=== PATIENT | male | born 1950 | race Caucasian/White ===

== ENCOUNTER 2017-12-11 08:43 | Day surgery (SDC) | payer MEDICARE, MEDICAID ==
[2017-12-11] MEDS ORDERED: LR 1,000 ML IV ×2 (09:00→12:30)
[2017-12-11] MEDS: dexameTHASONE 4 MG/ML 1ML VIAL (J1100) IV (11:00)
[2017-12-11] MEDS ORDERED: fentaNYL 100 MCG/2 ML INJECTION (J3010) As Ordered (11:00)
[2017-12-11] MEDS ORDERED: PROPOFOL 200 MG/20 ML VIAL As Ordered (11:00)
[2017-12-11] MEDS ORDERED: MIDAZOLAM INJ 2 MG/2 ML VIAL (J2250) As Ordered (11:00)
[2017-12-11] MEDS: LIDOCAINE W/EPINEPHRINE 1% 20ML VIAL As Ordered (11:07)
[2017-12-11] MEDS: BACITRACIN OINT 30GM As Ordered (11:26)
[2017-12-11] MEDS ORDERED: ONDANSETRON 4MG/2ML VIAL (J2405) IV (12:30)
[2017-12-11] MEDS ORDERED: PERCOCET 5MG/325MG TAB PO (12:30)
== END 2017-12-11 12:27 | disposition home or self-care (01) ==
LOC: M SDC 08:43
DX: C44.311 Basal cell carcinoma of skin of nose (principal); I10 Essential (primary) hypertension; J45.909 Unspecified asthma, uncomplicated; I25.10 Atherosclerotic heart disease of native coronary artery without angina pectoris; I25.2 Old myocardial infarction; E78.00 Pure hypercholesterolemia, unspecified; E03.9 Hypothyroidism, unspecified; K21.9 Gastro-esophageal reflux disease without esophagitis; M12.9 Arthropathy, unspecified; L30.9 Dermatitis, unspecified; Z88.0 Allergy status to penicillin; Z91.030 Bee allergy status; Z79.899 Other long term (current) drug therapy; Z85.09 Personal history of malignant neoplasm of other digestive organs; Z85.46 Personal history of malignant neoplasm of prostate; Z92.3 Personal history of irradiation; Z96.643 Presence of artificial hip joint, bilateral
CPT/HCPCS: 11441

== ENCOUNTER → 2018-07-14 | Outpatient (CLI) | payer MEDICARE, MEDICAID ==
[~2018-07-14] MED LIST: /BACIOPOI; /BISO10TA PO; ACET65SU PR; BISO10TA6 PO; CIPR500T3 PO; CIPR500T4; EZET10TA PO; LEVO50TA5 PO; LIDOCAINE 1% MDV 20ML VIAL As Ordered ONE; MULT1TAB11 PO; MULTIVIT; OYST500T; PANT40TA3 PO; PERC5TAB8; PRIL20CA; ROXI1TAB2 PO; SULF1TAB72 PO; TYLE650T25 PO; ZETI10TA PO; ZOCO20TA PO
--- NOTE | 2018-07-15 06:23 | REP ---
CT-GUIDED LEFT ILIAC BONE BIOPSY: The procedure was performed under the direct supervision of Dr. Perera The patient has a history of lytic lesions within the iliac bones left greater than right seen on a previous CT scan from the [facility] performed on 06/13/2018. The risks and benefits of the procedure were explained to the patient and informed consent was obtained. The largest iliac lesion in the left iliac bone was localized using CT guidance. The skin was prepped and draped in a sterile fashion. 1% lidocaine was used as a local anesthetic. Using CT guidance a 17/18 gauge coaxial needle biopsy system was inserted and advanced into the lesion. Five core biopsy samples and 3 ml of red colored fluid was withdrawn with all sample sent to the lab for analysis. The patient tolerated the procedure well and there were no immediate complications. After the appropriate amount of monitored convalescence the patient was discharged from the department. Reviewed by REECE Donnelly 07/14/2018 03:36 P Edited and Electronically Signed by Ajith Perera MD 07/15/2018 08:30 P
== END ==
LOC: M RADPRO 10:22
PROVIDERS: ATTEND Internal Medicine Hematology & Oncology
DX: M89.9 Disorder of bone, unspecified (principal); Z85.46 Personal history of malignant neoplasm of prostate; Z85.89 Personal history of malignant neoplasm of other organs and systems

== ENCOUNTER → 2018-07-24 | Outpatient (CLI) | payer MEDICARE, MEDICAID ==
--- NOTE | 2018-07-24 17:08 | REP ---
CT-GUIDED LEFT ILIAC BONE BIOPSY The procedure was performed under the direct supervision of Dr. levy. The patient has a history of lytic lesions within the iliac bones left greater than right seen on a previous CT scan from [facility] performed on 06/13/2018. The risks and benefits of the procedure were explained to the patient and informed consent was obtained. The left iliac bone was localized using CT guidance. The skin was prepped and draped in a sterile fashion. 1% lidocaine was used as a local anesthetic. Using CT guidance a 16-gauge bone biopsy system was inserted and advanced into the iliac bone. Six core biopsy samples were obtained and sent to lab. The patient tolerated the procedure well and there were no immediate complications. After the appropriate amount of monitored convalescence the patient was discharged from the department. Reviewed by REECE Donnelly 07/24/2018 04:58 P Electronically Signed by Gorge Levy MD 07/24/2018 05:00 P
== END ==
LOC: M RADPRO 08:17
PROVIDERS: ATTEND Internal Medicine Hematology & Oncology
DX: M89.9 Disorder of bone, unspecified (principal)

== ENCOUNTER → 2019-04-23 | Outpatient (CLI) | payer MEDICARE, MEDICAID ==
[~2019-04-23] MED LIST changes: -/BISO10TA PO; +BISO10TA10 PO; -BISO10TA6 PO; -EZET10TA PO; +EZET10TA21 PO; -LIDOCAINE 1% MDV 20ML VIAL As Ordered ONE; +MULTCAP PO; -SULF1TAB72 PO; +SULF400T14 PO; +ZEBE1TAB PO
--- NOTE | 2019-04-23 10:46 | REP ---
Soft-tissue ultrasound right axilla. History: Right axillary mass. History of head and neck and prostate carcinoma and skin carcinoma of the face. Findings: The left axillary sonography demonstrates numerous axillary lymph nodes. One of these is hypertrophied. All maintain central enter hilar architecture. The three largest additional lymph nodes measure as follows: 1.0 x 0.9 x 1.2, 1.3 x 0.9 x 2.0, and 1.3 x 0.9 x 1.4 cm. No hyperechoic hilar fat could be observed in two of the smaller nodes. Impression: Mild left axillary lymphadenopathy. Electronically Signed by Samuel Ruvalcaba MD 04/23/2019 10:38 A
== END ==
LOC: M RAD 09:55
PROVIDERS: ATTEND Surgery
DX: R59.0 Localized enlarged lymph nodes (principal)

== ENCOUNTER 2019-05-25 07:25 | Day surgery (SDC) | payer MEDICARE, MEDICAID ==
[~2019-05-25] VITALS: Ht 165.1 cm; Wt 67.0 kg
[~2019-05-25 07:25] MED LIST changes: -BISO10TA10 PO; +BISO10TA14 PO; +LR 1,000 ML IV SCH
[2019-05-25] MEDS ORDERED: fentaNYL 100 MCG/2 ML INJECTION (J3010) As Ordered ONE (09:04)
[2019-05-25] MEDS ORDERED: ONDANSETRON 4MG/2ML VIAL (J2405) As Ordered ONE (09:05)
[2019-05-25] MEDS ORDERED: propofoL 200 MG/20 ML VIAL As Ordered ONE (09:05)
[2019-05-25] MEDS ORDERED: LIDOCAINE 2% INJ 100 MG/5 ML SDV (FOR ANES.) As Ordered ONE (09:05)
[2019-05-25] MEDS ORDERED: MIDAZOLAM INJ 2 MG/2 ML VIAL (J2250) As Ordered ONE (09:05)
[2019-05-25] MEDS ORDERED: LIDOCAINE W/EPINEPHRINE 1% 20ML VIAL As Ordered ONE (09:29)
[2019-05-25] MEDS ORDERED: ePHEDrine SULFATE 25 MG/5 ML(5MG/ML) SYRINGE As Ordered ONE (09:55)
[2019-05-25] MEDS ORDERED: PERCOCET 5MG/325MG TAB PO PRN (10:30)
[2019-05-25] MEDS ORDERED: LR 1,000 ML IV SCH (10:30)
[2019-05-25] MEDS ORDERED: ONDANSETRON 4MG/2ML VIAL (J2405) IV PRN (10:30)
[2019-05-25] MEDS ORDERED: fentaNYL 100 MCG/2 ML INJECTION (J3010) IV PRN (10:30)
--- NOTE | 2019-05-25 10:46 | RO ---
DATE OF PROCEDURE: 05/25/2019 PREOPERATIVE DIAGNOSIS: Right axillary lymphadenopathy. POSTOPERATIVE DIAGNOSIS: Right axillary lymphadenopathy. PROCEDURE: Right axillary lymph node excisional biopsy. SURGEON: Gorge Hall DO ASSIST: None. ANESTHESIA: Intravenous (IV) sedation with 3 mL of 1% Xylocaine with epinephrine local. COMPLICATION: None. INDICATION FOR PROCEDURE: The patient is a 68-year-old male who presents with right axillary lymphadenopathy. Recommendation was to proceed with biopsy. Risks and benefits of the procedure not limited but including bleeding, infection, damage to surrounding structures, need for further surgery were discussed in detail with the patient. Informed consent was obtained, and procedure was planned. DESCRIPTION OF PROCEDURE: The patient brought back to operating room #3 after sufficient sedation. The right axilla was sterilely prepped and draped with chlorhexidine. Next, time-out was done to confirm proper patient and proper procedure. Following that, overlying the most palpable lymph node, local was injected into the skin and subcutaneous tissue. A 3-cm incision was then made using a 15 blade scalpel. Cautery was then used to dissect the subcutaneous tissues. The largest of the lymph nodes was then grabbed with a pair of Allis clamps, gently retracted back. It was mobilized using some blunt and sharp dissection. The neck of the lymph node was ligated off using a 3-0 Vicryl suture, and the large lymph nodes was removed measuring about 2 cm in size. Once that was removed, the incision was closed with interrupted 3-0 nylon sutures. The area was cleaned and dried. 4 x 4 and tape were applied, thus ending the procedure.
[2019-05-25 13:30] VITALS: BP 140/70
--- NOTE | 2019-05-26 06:48 | ECGEPIP ---
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
== END 2019-05-25 14:00 | disposition home or self-care (01) ==
LOC: M SDC 07:25
PROVIDERS: ATTEND Surgery
DX: C83.04 Small cell B-cell lymphoma, lymph nodes of axilla and upper limb (principal); Z85.21 Personal history of malignant neoplasm of larynx; C13.1 Malignant neoplasm of aryepiglottic fold, hypopharyngeal aspect; Z85.828 Personal history of other malignant neoplasm of skin; E78.00 Pure hypercholesterolemia, unspecified; I25.10 Atherosclerotic heart disease of native coronary artery without angina pectoris; I25.2 Old myocardial infarction; I11.9 Hypertensive heart disease without heart failure; Z92.21 Personal history of antineoplastic chemotherapy; Z92.3 Personal history of irradiation; E03.9 Hypothyroidism, unspecified; M19.90 Unspecified osteoarthritis, unspecified site; K21.9 Gastro-esophageal reflux disease without esophagitis; Z85.46 Personal history of malignant neoplasm of prostate; Z91.030 Bee allergy status; Z88.0 Allergy status to penicillin; Z79.899 Other long term (current) drug therapy; Z87.891 Personal history of nicotine dependence
CPT/HCPCS: 38525; 88305; 93005; J2250; J2405; J3010

== ENCOUNTER → 2019-06-11 | Outpatient (CLI) | payer MEDICARE, MEDICAID ==
[~2019-06-11] MED LIST changes: +GASTROGRAFIN SOLUTION 30ML (Q9963) As Ordered ONE; +ISOVUE-370 76% 100ML VIAL (Q9967) As Ordered ONE; -LR 1,000 ML IV SCH
--- NOTE | 2019-06-11 21:07 | REP ---
Clinical: Lymphoma staging. Comparison: 06/13/2018 Technique: Axial contrast enhanced images from the thoracic inlet to the upper abdomen with coronal and sagittal re-formations using 100 ml Isovue 370 intravenous contrast material. Findings: Prominent bilateral axillary lymph nodes are identified measuring approximately 2.1 cm maximal diameter along with 4.2 cm necrotic right axillary lymph node. Few mildly prominent mediastinal lymph nodes measure 1.4 cm maximal diameter along with right hilar lymph node measuring 1.5 cm. Findings are essentially unchanged from prior examination. The bilateral lung feliz are well-aerated and clear. No consolidation, pulmonary nodule or mass lesion. No pleural effusion or pneumothorax. Tracheobronchial tree is patent. Further evaluation of the mediastinum demonstrates stable dilatation to the ascending thoracic aorta measuring 4.7 cm maximal diameter. Heart is mildly prominent in size. No pericardial effusion. Pulmonary arteries are normal in appearance and diameter. Surrounding musculoskeletal structures without focal abnormality. Impression: 1. Most notable lymph nodes identified in the bilateral axilla measuring to 0.1 cm maximal diameter along with necrotic 4.2 cm right axillary node. 2. Stable ascending aortic dilatation. 3. No acute pleuroparenchymal process. Electronically Signed by Tony Lilly MD 06/11/2019 08:58 P
--- NOTE | 2019-06-11 21:17 | REP ---
Clinical: Lymphoma staging. History of prostate cancer. Technique: Axial contrast enhanced images from the lung bases to the pubic symphysis using oral (per protocol) and 100 ml Isovue 370 intravenous contrast material with coronal and sagittal re-formations. Delayed images of the abdomen obtained. Comparison: 06/13/2018. Findings: Fatty infiltration to the liver noted without obvious focal hepatic lesion. Spleen, pancreas, gallbladder, bilateral adrenal glands and kidneys are normal. The enteric system is without obstruction or acute inflammatory process. Normal terminal ileum and appendix are identified in the right lower quadrant. Evaluation of the pelvis is limited due to beam-hardening artifact from bilateral hip replacements. Penile implant with fluid reservoir in the pelvis noted. No ascites. No free air. No obvious intraperitoneal or retroperitoneal adenopathy. Atherosclerotic changes to the aorta and vasculature noted without aneurysm. Skeletal lytic lesions are identified involving the left efren pelvis are again noted. Impression: 1. Lytic lesions in the left efren pelvis including underlying the acetabular portion of the left hip prosthesis are unchanged and likely related to given history of prostate cancer. 2. No further acute abdominopelvic pathology appreciated. Electronically Signed by Tony Lilly MD 06/11/2019 09:08 P
== END ==
LOC: M RAD 15:36
PROVIDERS: ATTEND Internal Medicine Hematology
DX: C61 Malignant neoplasm of prostate (principal); I77.819 Aortic ectasia, unspecified site; R59.0 Localized enlarged lymph nodes; I70.0 Atherosclerosis of aorta; I25.10 Atherosclerotic heart disease of native coronary artery without angina pectoris
CPT/HCPCS: 71260; 74177; Q9963; Q9967

== ENCOUNTER 2020-08-31 15:31 | Inpatient (IN) | payer MEDICARE, MEDICAID ==
[~2020-08-31] VITALS: Ht 165.1 cm; Wt 61.3 kg
[~2020-08-31 15:31] MED LIST changes: +AMLO1TAB24 PO; -GASTROGRAFIN SOLUTION 30ML (Q9963) As Ordered ONE; -ISOVUE-370 76% 100ML VIAL (Q9967) As Ordered ONE; +PANT40TA29 PO; -PANT40TA3 PO
[2020-08-31 16:38] LABS: HEMATOCRIT 41.1 % (42.0-52.0); HEMOGLOBIN 13.7 g/dl (13.5-17.5); MEAN CORPUSCULAR HEMOGLOBIN 31.6 pg (27.0-33.0); MEAN CORPUSCULAR HGB CONC 33.3 g/dl (32.0-36.5); MEAN CORPUSCULAR VOLUME 94.7 fl (80.0-96.0); PLATELET COUNT, AUTOMATED 156 10^3/uL (150-450); RED BLOOD COUNT 4.34 10^6/uL (4.30-6.10)
[2020-08-31 16:40] LABS: WHITE BLOOD COUNT 29.2 10^3/uL (4.0-10.0)
--- NOTE | 2020-08-31 16:41 | REP ---
INDICATION: choked, SOB COMPARISON: 10/07/2009. TECHNIQUE: PA/Lateral FINDINGS: The patient is rotated to the left. The left hemidiaphragm is mildly elevated with probable mild left base atelectatic change. The heart does not appear to be significantly enlarged. There is mild calcification of the thoracic aorta. Otherwise no gross mediastinal abnormality is seen. There are mild degenerative changes of the spine. IMPRESSION: Somewhat limited exam due to patient rotation. Probable mild atelectatic changes left lung base, with mild elevation of the left hemidiaphragm.. <Electronically signed by Gorge Levy > 08/31/20 [id number]
[2020-08-31 17:00] LABS: BLOOD UREA NITROGEN 6 MG/DL (7-18); CARBON DIOXIDE LEVEL 28 MEQ/L (21-32); CHLORIDE LEVEL 92 MEQ/L (98-107); CREATININE FOR GFR 0.55 MG/DL (0.70-1.30); GLOMERULAR FILTRATION RATE > 60.0 (>49); GLUCOSE, FASTING 85 MG/DL (70-100); POTASSIUM SERUM 3.9 MEQ/L (3.5-5.1); SODIUM LEVEL 129 MEQ/L (136-145)
[2020-08-31 17:12] LABS: ATYPICAL LYMPH 6 % (0-5); BASOPHILS 1 % (0-1); LYMPHOCYTES 77 % (16-44); NEUTROPHILS 16 % (28-66)
[2020-08-31 17:13] LABS: ANISOCYTOSIS 1+; PLATELET ESTIMATE NORMAL (NORMAL); SMUDGE CELLS 3+
[2020-08-31] MEDS ORDERED: ISOVUE-370 76% 100ML VIAL As Ordered ONE (18:30)
[2020-08-31 18:46] LABS: CK-MB VALUE MASS 4.9 NG/ML (<3.6); CPK CREATINE PHOSPHOKINASE 195 U/L (39-308); FREE T4 0.84 NG/DL (0.76-1.46); MAGNESIUM LEVEL 1.9 MG/DL (1.8-2.4); MB/CK RELATIVE INDEX 2.51 (< OR =4); TROPONIN I 0.03 NG/ML (< 0.10)
[2020-08-31] MEDS ORDERED: NS 500 ML IV ONE (18:50)
[2020-08-31 19:31] LABS: INR 0.87; PARTIAL THROMBOPLASTIN TIME 25.8 SECONDS (24.2-38.5)
[2020-08-31] MEDS ORDERED: ENOXAPARIN 40MG/0.4ML SYRINGE (J1650 PER 10MG) SC SCH (21:00)
[2020-08-31] MEDS ORDERED: amLODIPine 5 MG TAB PO SCH (21:00)
--- NOTE | 2020-08-31 21:03 | REPVR ---
PROCEDURE INFORMATION: Exam: CT Head Without Contrast Exam date and time: 08/31/2020 8:24 PM Age: 69 years old Clinical indication: Injury or trauma; Fall; Blunt trauma (contusions or hematomas) TECHNIQUE: Imaging protocol: Computed tomography of the head without contrast. Radiation optimization: All CT scans at this facility use at least one of these dose optimization techniques: automated exposure control; mA and/or kV adjustment per patient size (includes targeted exams where dose is matched to clinical indication); or iterative reconstruction. COMPARISON: CT HEAD W/O CONTRAST - OUTSIDE PRIOR 06/13/2018 12:00 AM FINDINGS: Brain: Normal. No hemorrhage. Unremarkable white matter. No mass effect. Cerebral ventricles: No ventriculomegaly. Bones/joints: Unremarkable. No acute fracture. Paranasal sinuses: Visualized sinuses are unremarkable. No fluid levels. Mastoid air cells: Visualized mastoid air cells are well aerated. Soft tissues: Unremarkable. IMPRESSION: No acute intracranial abnormality. Electronically signed by: Etienne Fenton On 08/31/2020 21:03:25 PM
--- NOTE | 2020-08-31 21:26 | REPVR ---
PROCEDURE INFORMATION: Exam: CTA Chest With Contrast Exam date and time: 08/31/2020 8:24 PM Age: 69 years old Clinical indication: Chest pain; Additional info: Chest pain, syncope TECHNIQUE: Imaging protocol: Computed tomographic angiography of the chest with contrast. 3D rendering (Not supervised by radiologist): MIP and/or 3D reconstructed images were created by the technologist. Radiation optimization: All CT scans at this facility use at least one of these dose optimization techniques: automated exposure control; mA and/or kV adjustment per patient size (includes targeted exams where dose is matched to clinical indication); or iterative reconstruction. Contrast material: ISOVUE 370; Contrast volume: 75 ml; Contrast route: INTRAVENOUS (IV); COMPARISON: CT Chest with contrast 06/11/2019 6:15 PM FINDINGS: Pulmonary arteries: The main pulmonary artery measures 29 mm. No pulmonary embolism is identified. Aorta: The ascending thoracic aorta measures 45 mm. Lungs: Moderate left lung fibro-atelectatic change and question of minimal infiltrates with possible consolidation in the left lower lobe. There is volume loss in the left lung. Pleural spaces: Unremarkable. No pneumothorax. No pleural effusion. Heart: Unremarkable. No cardiomegaly. No pericardial effusion. Lymph nodes: Calcified granuloma in the lateral right lower lobe with calcified right hilar nodes. Borderline precarinal and AP window nodes which are less well-defined since the prior study with slight induration of surrounding mediastinal fat and may be slightly increased since the prior study. Bones/joints: Unremarkable. No acute fracture. Soft tissues: There is abrupt obstruction of central left bronchi with ill-defined soft tissue mass extending around the caudal aspect of the distal left main bronchus and inferior left hilum. IMPRESSION: 1. Mild aneurysmal dilatation of the ascending thoracic aorta measuring 45 mm which is similar to 06/11/2019. 2. New volume loss in the left hemithorax with abrupt obstruction of branches of the distal left main bronchus and question of surrounding peribronchial mass in the left hilum which is viewed with suspicion. There is moderate left lung fibro-atelectatic change and question of minimal infiltrates which is greatest in the left lower lobe with question of some left lower lobe consolidation. 3. Borderline precarinal and AP window nodes which are less well-defined since the prior study due to induration of surrounding mediastinal fat although the nodes may be slightly increased since the prior study. 4. Old granulomatous disease. 5. No pulmonary embolism is identified. Electronically signed by: Giovanny Bonner On 08/31/2020 21:25:26 PM
[2020-08-31] MEDS ORDERED: LevoFLOXacin IV 750 MG in IV 1 EA IV ONE (21:55)
[2020-08-31] MEDS ORDERED: VITMTA PO (22:08)
[2020-08-31] MEDS ORDERED: EZET10TA21 PO (22:08)
[2020-08-31] MEDS ORDERED: BISO10TA14 PO (22:08)
[2020-08-31] MEDS ORDERED: AMLO1TAB24 PO (22:08)
[2020-08-31] MEDS ORDERED: SIMV20TA22 PO (22:08)
[2020-08-31] MEDS ORDERED: LORazepam 2 MG TAB PO PRN (23:15)
[2020-08-31] MEDS ORDERED: ACETAMINOPHEN TAB 650MG DOSE (2X325MG) PO PRN (23:15)
--- NOTE | 2020-08-31 23:17 | ECGEPIP ---
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
[2020-08-31 23:44] LABS: ETHYL ALCOHOL (ETHANOL) 0.034 % (0.000-0.010)
[2020-09-01] VITALS (13 sets, daily range): BP systolic 82–136; BP diastolic 51–80; O2SAT 86–92
--- NOTE | 2020-09-01 00:23 | HPEPDOC ---
[facility] Medical History & Physical Date of Admission Aug 31, 2020 Date of Service: Aug 31, 2020 Primary Care Physician: John Vidal MD Attending Physician: GAGE CAZARES MD History and Physical CHIEF COMPLAINT: Syncope HISTORY OF PRESENT ILLNESS: Patient is a 69-year-old male who presented to the emergency department via EMS after passing out while eating. Patient states he was eating a turkey wrap and all of a sudden passed out. Patient was at his daughter's house when this happened. According to the history received in the emergency department physician, there was apparently an episode of shaking. Patient came to and remembers the ride to the emergency department. Patient denies having any issues with eating such as choking or coughing while he eats. Patient's only complaint at this time is rib pain on the left lower rib cage. Patient has a history of CLL which he follows with oncology for. Patient also has a history of throat and prostate cancer that were treated with both surgery and radiation. Patient states he does not feel dizzy or lightheaded at this time. Patient feels otherwise well. PAST MEDICAL HISTORY: 1. History of laryngeal cancer status post radiation. 2. History of prostate cancer status post radical prostatectomy. 3. CLL/small lymphocytic lymphoma. 4. Hypertension 5. Hyponatremia 6. Hypothyroidism PAST SURGICAL HISTORY: 1. Bilateral hip replacement. 2. Left ankle surgery. 3. Left wrist surgery. 4. Throat biopsy 5. Robotic -assisted radical prostatectomy 6. Penile implant 7. Axillary lymph node removal SOCIAL HISTORY: Patient states that he had quit smoking and drinking alcohol for 17 years until about 2 months ago. Patient denies any illicit substances. Patient says he drinks about 6 beers or more a day and had 2 beers prior to coming into the emergency department. FAMILY HISTORY: Patient denies any diseases that he knows that run in the family ALLERGIES: Please see below. REVIEW OF SYSTEMS: General: Patient reports losing weight over the last 2 months but denies any fevers. HEENT: Patient denies headaches Cardiovascular: Patient denies chest pain Respiratory: Patient reports some pain in the rib cage when breathing and shortness of breath. Patient denies coughing GI: Patient denies abdominal pain, nausea, vomiting, diarrhea : Patient denies increased frequency or pain with urination Extremities: Patient denies swelling or pain in extremities Neurological: Patient denies numbness or tingling in legs Skin: Patient denies any new rashes or lesions. Hematologic: Patient denies any easy bruising. Lymphatic: Patient denies any lumps lumps or bumps in neck, axilla, or groin HOME MEDICATIONS: Please see below. PHYSICAL EXAMINATION: VITAL SIGNS: Temperature 97.2, pulse 73, respiratory rate 20, blood pressure 141/78, pulse oximetry 98% on 4 L via nasal cannula General: Alert and oriented male patient who is laying on his right side when I walked into the room. Patient was thin appearing with a ring on the patient's right hand appearing to be bigger than his finger. Patient did not appear to be in any acute distress. Patient has nasal cannula oxygen in place. HEENT: Normocephalic, atraumatic, moist mucous membranes. Neck: No lymphadenopathy or thyromegaly Cardiac: Regular rate and rhythm, no murmurs, normal S1, normal S2 Pulm: Diminished breath sounds with faint crackles in the left lower lung feliz. Other lung feliz were clear to auscultation Chest wall: Patient had tenderness over the left subcostal area to palpation. Abd: Nondistended, nontender to palpation, normal bowel sounds Ext: No edema bilateral lower extremities LABORATORY DATA: See below. IMAGING: A chest x-ray performed on 08/31/2020 was reported to show somewhat limited exam due to patient rotation. Probable mild atelectatic changes left lung base, with mild elevation of left hemidiaphragm. A CT angiogram of the chest performed on 08/31/2020 was reported to show: 1. Mild aneurysmal dilatation of the ascending thoracic aorta measuring 45 mm which is similar to 06/11/2019. 2. New volume loss in the left hemithorax with abrupt obstruction of branches of the distal left main bronchus and question of surrounding peribronchial mass in the left hilum which is viewed with suspicion. There is moderate left lung fibro-atelectatic change and question of minimal infiltrates which is greatest in the left lower lobe with question of some left lower lobe consolidation. 3. Borderline precarinal and AP window nodes which are less well-defined since the prior study due to induration of surrounding mediastinal fat although the nodes may be slightly increased since the prior study. 4. Old granulomatous disease. 5. No pulmonary embolism is identified. A CT head without contrast performed on 08/31/2020 was reported to show no acute intracranial abnormality. MICROBIOLOGY: Please see below. ASSESSMENT: Patient is a 69-year-old male who syncopized at home while eating lunch and was found to have a new mass in his left lung causing volume loss with possible postobstructive pneumonia. PLAN: 1. Hypoxia. Patient does not wear oxygen at home and is requiring up to 4 L to remain oxygenated. Patient was having difficulty maintaining his oxygen saturations above 90% while in the room and I believe this is secondary to the patient laying on his right side. Patient was found to have a new mass in his left lung that was causing volume loss as well as obstruction. Patient appears to have a postobstructive pneumonia distal to these obstructed bronchi. Patient will most likely benefit from a pulmonology consultation as he may need bronchoscopy and biopsy of this mass. 2. New lung mass. Patient had a CT injury and that showed a new lung mass. Patient may need pulmonology consult in the morning as above. 3. Postoperative pneumonia. Patient will be continued on Levaquin. Patient did receive 1 dose in the emergency department. 4. CLL. Patient follows with oncology for this. Patient's white blood cell count is very high with a lymphocytic predominance on differential which fits this picture. Patient will continue to follow him with his oncologist. 5. History of prostate cancer. Patient will continue to follow with urology outpatient. 6. Hypothyroidism. We will continue patient's home medications. 7. Hypertension. We will closely monitor the patient's blood pressure and give his home antihypertensive if necessary. 8. History of laryngeal cancer. This was treated with radiation. Patient did have a feeding tube at one time but this has been since removed. 9. DVT prophylaxis. Lovenox. 10. CODE STATUS: Patient would like to be a full code however, he would not like to be on mechanical ventilation for long-term. Disposition: Patient will be admitted into the progressive care unit for further monitoring secondary to his hypoxia. Patient will most likely be admitted for greater than 2 midnights. Vital Signs Vital Signs Date Time Temp Pulse Resp B/P (MAP) Pulse Ox O2 Delivery O2 Flow Rate FiO2 08/31/20 18:27 Nasal Cannula 4.0 08/31/20 18:24 73 179/87 (117) 73 167/93 (117) 75 142/85 (104) 08/31/20 18:01 20 98 08/31/20 16:24 97.2 Laboratory Data Labs 24H Laboratory Tests 2 08/31/20 16:20: Neutrophils (%) (Auto) , Nucleated Red Blood Cells % (auto) 0.1H, Neutrophils 16L, Lymphocytes (Manual) 77H, Basophils (Manual) 1, Atypical Lymphocytes 6H, Anisocytosis 1+, Smudge Cells 3+, Platelet Estimate NORMAL, Anion Gap 9, Glomeru lar Filtration Rate > 60.0, Calcium Level 9.0, Magnesium Level 1.9, Total Creatine Kinase 195, Creatine Kinase MB 4.9H, Creatine Kinase MB Relative Index 2.51, Troponin I 0.03, Thyroid Stimulating Hormone (TSH) 4.800H, Free Thyroxine 0.84, Ethyl Alcohol Level 0.034H 08/31/20 18:18: Bedside Glucose (Misc Panel) 116H 08/31/20 19:09: Prothrombin Time 12.0, Prothromb Time International Ratio 0.87, Activated Partial Thromboplast Time 25.8 CBC/BMP Laboratory Tests 08/31/20 16:20 Microbiology Microbiology 08/31/20 Respiratory Virus Panel (PCR) (HILDA) - Final, Complete 08/31/20 Blood Culture, Received Pending 08/31/20 Blood Culture, Received Pending Home Medications Scheduled Amlodipine Besylate (Amlodipine Besylate) 5 Mg Tablet, 5 MG PO QHS Bisoprolol Fumarate (Bisoprolol Fumarate) 10 Mg Tablet, 10 MG PO DAILY Ezetimibe (Ezetimibe) 10 Mg Tablet, 10 MG PO DAILY Levothyroxine Sodium (Levothyroxine Sodium) 50 Mcg Tab, 50 MCG PO DAILY Multivitamins (Thera M Plus Tablet) 1 Each Tablet, 1 TAB PO DAILY Simvastatin (Simvastatin) 20 Mg Tablet, 20 MG PO QHS Allergies Coded Allergies: Penicillins (Verified Allergy, Severe, anaphylaxis, hives, 08/31/20) bee venom protein (honey bee) (Verified Allergy, Severe, respiratory depression, wheezing, 08/31/20) A-FIB/CHADSVASC A-FIB History Current/History of A-Fib/PAF?: No GME ATTESTATION GME ATTESTATION My faculty preceptor for this patient encounter was physically present during the encounter and was fully available. All aspects of the patient interview, examination, medical decision making process, and medical care plan development were reviewed and approved by the faculty preceptor. The faculty preceptor is aware and concurs with the plan as stated in the body of this note and will attest to such by his/her cosignature. BRYANNA STEWARD DO Sep 01, 2020 00:23
[2020-09-01] MEDS: SIMVASTATIN 20 MG TAB PO SCH ×2 (01:38→22:02)
[2020-09-01 05:55] LABS: HEMATOCRIT 46.5 % (42.0-52.0); MEAN CORPUSCULAR HEMOGLOBIN 31.7 pg (27.0-33.0); MEAN CORPUSCULAR HGB CONC 33.8 g/dl (32.0-36.5); MEAN CORPUSCULAR VOLUME 93.8 fl (80.0-96.0); PLATELET COUNT, AUTOMATED 184 10^3/uL (150-450); RED BLOOD COUNT 4.96 10^6/uL (4.30-6.10)
[2020-09-01 06:11] LABS: HEMOGLOBIN 15.7 g/dl (13.5-17.5); WHITE BLOOD COUNT 37.4 10^3/uL (4.0-10.0)
[2020-09-01 06:21] LABS: ALBUMIN 4.1 GM/DL (3.2-5.2); ALT/SGPT 42 U/L (12-78); BILIRUBIN,TOTAL 0.9 MG/DL (0.2-1.0); BLOOD UREA NITROGEN 8 MG/DL (7-18); CALCIUM LEVEL 9.2 MG/DL (8.8-10.2); CARBON DIOXIDE LEVEL 27 MEQ/L (21-32); CHLORIDE LEVEL 91 MEQ/L (98-107); CREATININE FOR GFR 0.54 MG/DL (0.70-1.30); GLOMERULAR FILTRATION RATE > 60.0 (>49); GLUCOSE, FASTING 102 MG/DL (70-100); MAGNESIUM LEVEL 1.8 MG/DL (1.8-2.4); POTASSIUM SERUM 4.5 MEQ/L (3.5-5.1); SODIUM LEVEL 125 MEQ/L (136-145); TOTAL PROTEIN 7.1 GM/DL (6.4-8.2)
[2020-09-01] MEDS: LEVOTHYROXINE 50MCG TABLET (0.05MG) PO SCH (06:22)
[2020-09-01 06:45] LABS: ATYPICAL LYMPH 5 % (0-5); LYMPHOCYTES 79 % (16-44); NEUTROPHILS 16 % (28-66); PLATELET ESTIMATE NORMAL (NORMAL)
[2020-09-01] MEDS ORDERED: MEROPENEM INJ 500 MG in IV 1 EA IV SCH (08:05)
[2020-09-01] MEDS: MEROPENEM INJ 1 GM in IV 1 EA IV SCH ×2 (08:50→16:38)
[2020-09-01] MEDS: SODIUM CHLORIDE 1 GM TAB PO SCH ×3 (08:50→22:02)
[2020-09-01] MEDS: LACTOBACILLUS ACIDOPHILUS CAP (BACID) PO SCH ×3 (08:51→18:36)
[2020-09-01] MEDS: THIAMINE 100 MG TAB PO SCH ×2 (08:51→22:02)
[2020-09-01] MEDS: guaiFENesin ER 600 MG TAB PO SCH ×2 (08:51→22:03)
[2020-09-01] MEDS: MULTIVITAMINS/MINERALS THERAP 1 TAB PO SCH (08:51)
[2020-09-01] MEDS: EZETIMIBE 10 MG TAB (ZETIA) PO SCH (08:51)
[2020-09-01] MEDS: FOLIC ACID 1 MG TAB PO SCH (08:51)
[2020-09-01] MEDS ORDERED: bisoproloL fumarate 10 MG TAB PO SCH (09:00)
[2020-09-01 09:19] LABS: ABG BASE EXCESS 1.5 (-2.0-2.0); ABG HCO3 25.9 MEQ/L (22.0-26.0); ABG O2 SATURATION 91.7 % (95.0-99.0); ABG PARTIAL PRESSURE O2 58.8 mmHg (75.0-100.0); ABG STANDARD HCO3 25.7 MEQ/L (22.0-26.0); ABG TOTAL CO2 27.1 MEQ/L (23.0-31.0); ABG pH (ARTERIAL) 7.429 UNITS (7.350-7.450)
[2020-09-01] MEDS ORDERED: TOLVAPTAN 7.5 MG HALF-TAB PO ONE (11:00)
[2020-09-01 13:07] LABS: BLOOD UREA NITROGEN 11 MG/DL (7-18); CALCIUM LEVEL 9.4 MG/DL (8.8-10.2); CARBON DIOXIDE LEVEL 27 MEQ/L (21-32); CHLORIDE LEVEL 92 MEQ/L (98-107); CREATININE FOR GFR 0.72 MG/DL (0.70-1.30); GLOMERULAR FILTRATION RATE > 60.0 (>49); GLUCOSE, FASTING 122 MG/DL (70-100); POTASSIUM SERUM 4.3 MEQ/L (3.5-5.1); SODIUM LEVEL 129 MEQ/L (136-145)
[2020-09-01] MEDS ORDERED: MIDODRINE 5 MG TAB PO SCH (13:45)
--- NOTE | 2020-09-01 13:57 | IPN ---
PROGRESS NOTE DATE: 09/01/2020 SUBJECTIVE: Patient still complains of shortness of breath, cough, difficult to expectorate. No fever or chills overnight. He complains of generalized weakness. No hemoptysis, nausea, vomiting, epigastric pain, chest pain, pressure, tightness, palpitations, lightheadedness or near syncope. PHYSICAL EXAMINATION: VITAL SIGNS: Temperature 97.9, pulse 82, respiratory rate 22, blood pressure 98/68Venturi mask 15 liters, FIO2 50%. GENERAL: Patient is awake, alert, oriented to himself, able to speak but slow speech and whispering. He has positive use of respiratory accessory muscles. HEENT: Cachectic appearing. No JVD or thyromegaly. Moist mucous membranes. HEART: S1, S2, sinus rhythm. No murmurs, rubs or gallops. LUNGS: Diminished breath sounds on the left with crackles. ABDOMEN: Soft, nontender, non-distended. Positive bowel sounds. EXTREMITIES: No cyanosis, clubbing or pitting edema. LABORATORY DATA: White count 37, hemoglobin 15, hematocrit 46, platelet count 184,000. Sodium 125, potassium 4.5, chloride 91, bicarb 27, BUN 8, creatinine 0.54, glucose 102. IMAGING STUDIES: CT chest revealed moderate left lung fibro-atelectasis, minimal infiltrate with consolidation left lower lobe, volume loss in the left lung, descending thoracic aorta measuring 45 mm. No pneumothorax or pleural effusion. No cardiomegaly. No pericardial effusion. Precarinal AP lymph nodes less well defined since prior study with slight induration of surrounding mediastinal fat and maybe slightly increased from previous, old granulomatous disease, no PE. ASSESSMENT AND PLAN: This is a 69-year-old male admitted on 08/31/2020 with past medical history significant for laryngeal cancer; status post radiation, prostate cancer; status post radical prostatectomy, chronic lymphocytic leukemia, small lymphocytic lymphoma, hypertension, hyponatremia, hypothyroidism, who was admitted due to syncopal episode at home, could not remember what happened while he was at his daughter's house. Patient had some chills on arrival and was found in the ER to have a post obstructive pneumonia on the left. He was treated with I.V. Levaquin due to penicillin allergy. Patient continued to have worsening white count to 35,000, sodium level decreasing from 129,000 to 125,000, and remained hypoxic requiring Venturi Mask with 15 liters flow rate, FIO2 of 50%. Respiratory panel was negative for Coronavirus. CURRENT ISSUES: 1. Acute hypoxic respiratory failure secondary to a new left lung mass along with a post obstructive pneumonia: Patient is currently requiring 50% FIO2, maybe Vapotherm. Will continue with aggressive pulmonary toilet which has physiotherapy, Acapella and incentive spirometry. Repeat arterial blood gas if he continues to decompensate. Keep saturations above 90% at least. Supportive care with I.V. antibiotics, but will change from I.V. Levaquin to I.V. Meropenem at 500 mg every 8 hours. Sputum culture if available. Blood cultures have been sent. Tapper Shank will be consulted due to worsening respiratory distress. 2. Post obstructive pneumonia with atelectasis/left-sided lung mass: Patient is medically unstable to undergo CT guided biopsy and most likely cannot be reached, therefore will defer to pulmonology regarding timing of bronchoscopy once respiratory distress has improved. Most likely malignancy, will consult patient's travelers' aid worker, Dr. Beltre, from the [facility]. 3. Near syncope: Patient may have symptomatic hyponatremia, sodium level currently has worsened at 125 from 129. Echocardiogram has been ordered. Patient is currently on telemetry. Continue on supportive care for now. 4. Hyponatremia: Patient is at risk for aspiration, will obtain a speech consult. Sodium tablets can be added t.i.d. with his meals and recheck BMP every 6 hours until normalized. Avoid more than 10 to 12 mEq change management facilitator a 24 hour period. Samsca one dose 7.5 mg times one. 5. History of CLL, small lymphocytic lymphoma, prostate cancer; status post radical prostatectomy, laryngeal cancer; status post radiation: Defer to medical oncologist for any further changes. 6. Hypertension: Currently with low blood pressure, therefore will discontinue patient's home medications. 7. Hypothyroidism: May continue on Synthroid. 8. Alcohol intoxication on admission: most likely cause of syncope at home. 9. Possible Aspiration from alcohol intoxication with hypoxia: aspiration precautions. swallow eval. 10. Acute metabolic encephalopathy: due pneumonia, aspiration, hypoxia, etoh. addendum: discussed w tank setter helper cash reconciliation specialist, Dr. Mchugh. no changes in mgt needed. Pt is not clinically stable for bronchoscopy. continue supportive care , aerosolized oxygen, pulm toilet. Dr. Mchugh will signout to Dr. Rivera when he goes off service later this evening. CODE STATUS: Full code. MTDD
[2020-09-01] MEDS: MIDODRINE 5 MG TAB PO SCH (16:38)
[2020-09-01 18:32] LABS: BLOOD UREA NITROGEN 11 MG/DL (7-18); CALCIUM LEVEL 8.6 MG/DL (8.8-10.2); CARBON DIOXIDE LEVEL 28 MEQ/L (21-32); CHLORIDE LEVEL 95 MEQ/L (98-107); CREATININE FOR GFR 0.58 MG/DL (0.70-1.30); GLOMERULAR FILTRATION RATE > 60.0 (>49); GLUCOSE, FASTING 93 MG/DL (70-100); POTASSIUM SERUM 4.4 MEQ/L (3.5-5.1); SODIUM LEVEL 131 MEQ/L (136-145)
--- NOTE | 2020-09-01 20:01 | CR.PDOC ---
General Date of Consultation: Sep 01, 2020 Referring Provider: ARIEL COHEN MD Attending Physician: TEGAN BROWN MD Consultation REASON FOR CONSULTATION/CHIEF COMPLAINT: History of prostate cancer/chronic lymphocytic leukemia with new left-sided lung mass and pneumonia area.. HISTORY OF PRESENT ILLNESS: I had the pleasure of seeing Mr. Samuel Linder in consultation for a new mass and pneumonia in the left lung. As you know Mr. Tapia is a 69-year-old white gentleman who was diagnosed to have adenocarcinoma prostate and underwent robotic prostatectomy at [facility] is no evidence of metastatic disease at that time. He was also found to have CLL/SLL diagnosed on 06/05/2019 with a lymph node biopsy of the left axillary area. He never received treatment for CLL/SLL and is being followed with watchful observation. He was seen last time in our office on 03/30/2020. He was admitted now since he suddenly passed out while he was visiting his daughter's home. CT scan done in emergency room revealed left lower lobe pneumonia and there was possibility of a mass and pneumonia was likely postobstructive in nature. Patient is admitted and has been started on antibiotics. Currently he is stable. He has minimal cough with mucoid phlegm. Denies hemoptysis. He denies fever chills or rigors. He denies nausea vomiting abdominal pain or diarrhea. He does not have headache dizziness or blackouts. He has no urinary symptoms. PAST MEDICAL HISTORY: 1. History of laryngeal cancer status post radiation. 2. History of prostate cancer status post radical prostatectomy. 3. CLL/small lymphocytic lymphoma. 4. Hypertension 5. Hyponatremia 6. Hypothyroidism PAST SURGICAL HISTORY: 1. Bilateral hip replacement. 2. Left ankle surgery. 3. Left wrist surgery. 4. Throat biopsy 5. Robotic -assisted radical prostatectomy 6. Penile implant 7. Axillary lymph node removal FAMILY HISTORY: No history of CLL or prostate cancer or lung cancer in family SOCIAL HISTORY: Patient lives alone and recently he is girlfriend left him and he is quite depressed. He quit smoking and drinking for 17 years but restarted smoking about 2 months ago. He has been drinking beer 6 a day and was drinking also prior to brought in to emergency room. REVIEW OF SYSTEMS: CONSTITUTIONAL: Patient has been losing weight but denies fever chills or rigors. HEENT: No headaches or visual changes. CARDIOVASCULAR: Denies chest pain palpitation PND or orthopnea. RESPIRATORY: Shortness of breath cough with mucoid phlegm. GENITOURINARY: History of prostate cancer. Denies bloody urination or blood in the urine. MUSCULOSKELETAL: Denies body pains. GASTROINTESTINAL: No nausea vomiting abdominal pain or diarrhea. SKIN: No rashes. NEUROLOGICAL: No deficit. PSYCHIATRIC: Patient's slightly depressed because he is girlfriend left him.. HEMATOLOGIC/LYMPHATIC: Has history of CLL and lymphadenopathy. ALLERGIC/IMMUNOLOGIC: . PHYSICAL EXAMINATION: VITAL SIGNS: Please see below. GENERAL APPEARANCE: An elderly gentleman in no acute distress lying comfortably in bed.. HEENT: WNL EOMI oral cavity clear without mucositis or thrush. RESPIRATORY: Crackles heard in the left lung, right lung is clear. CARDIOVASCULAR: Normal cardiac sound regular rate and rhythm. ABDOMEN: Soft bowel sounds present. No hepatosplenomegaly. EXTREMITIES: Normal without any pedal edema. NEUROLOGICAL: No gross motor or sensory deficit. PSYCHIATRIC: Slightly depressed. LABORATORY DATA: Please see below. ASSESSMENT/PLAN: 1. Possibility of mass in the left lung found on recent CAT scan with postobstructive pneumonia. He is recovering from pneumonia and is on antibiotics. He needs to continue antibiotics until pneumonia resolves then he will require bronchoscopy since there is post obstructive pneumonia and bronchoscopy may be able to get tissue sample for exact diagnosis. Lung mass is not big enough to go CT-guided needle biopsy.. 2. Prostate carcinoma: PSA level will be ordered. 3. Patient has CLL and has immune compromised state because of CLL. I will order an IgG level and if it is below 500 IVIG will be helpful to improve the immunity and improve the healing of his pneumonia. Once patient recovers from pneumonia and have bronchoscopy and tissue diagnosis is available, patient will be followed up as outpatient for further decision making in treatment. Vital Signs/I&O Vital Signs Date Time Temp Pulse Resp B/P (MAP) Pulse Ox O2 Delivery O2 Flow Rate FiO2 09/01/20 17:26 78 118/78 09/01/20 16:04 98.5 24 94 HVNI-Vapotherm 20.0 100 I&O- Last 24 Hours up to 6 AM 09/01/20 06:00 Intake Total 150 ml Output Total 275 ml Balance -125 ml Laboratory Data Labs 24H Laboratory Tests 2 09/01/20 01:21: Lactic Acid Level 1.0 09/01/20 05:26: Neutrophils (%) (Auto) , Nucleated Red Blood Cells % (auto) 0.0, Neutrophils 16L, Lymphocytes (Manual) 79H, Atypical Lymphocytes 5, Red Blood Cell Morphology NORMAL, Platelet Estimate NORMAL, Anion Gap 7L, Glomerular Filtration Rate > 60.0, Calcium Level 9.2, Magnesium Level 1.8, Total Bilirubin 0.9, Aspartate Amino Transf (AST/SGOT) 39H, Alanine Aminotransferase (ALT/SGPT) 42, Alkaline Phosphatase 51, Total Protein 7.1, Albumin 4.1, Albumin/Globulin Ratio 1.4 09/01/20 09:09: Blood Gas Bicarbonate Standard 25.7, Arterial Blood pH 7.429, Arterial Blood Partial Pressure CO2 40.0, Arterial Blood Partial Pressure O2 58.8L, Arterial Blood Total CO2 27.1, Arterial Blood HCO3 25.9, Arterial Blood Base Excess 1.5, Arterial Blood Oxygen Saturation 91.7L 09/01/20 12:07: Anion Gap 10, Glomerular Filtration Rate > 60.0, Calcium Level 9.4 09/01/20 17:43: Anion Gap 8, Glomerular Filtration Rate > 60.0, Calcium Level 8.6L CBC/BMP Laboratory Tests 09/01/20 05:26 09/01/20 12:07 09/01/20 17:43 Microbiology Microbiology 08/31/20 Respiratory Virus Panel (PCR) ([facility]) - Final, Complete 08/31/20 Blood Culture, Received Pending 08/31/20 Blood Culture, Received Pending Allergies Coded Allergies: Penicillins (Verified Allergy, Severe, anaphylaxis, hives, 08/31/20) bee venom protein (honey bee) (Verified Allergy, Severe, respiratory depression, wheezing, 08/31/20) Home Medications Scheduled Amlodipine Besylate (Amlodipine Besylate) 5 Mg Tablet, 5 MG PO QHS, (Reported) Bisoprolol Fumarate (Bisoprolol Fumarate) 10 Mg Tablet, 10 MG PO DAILY, (Reported) Ezetimibe (Ezetimibe) 10 Mg Tablet, 10 MG PO DAILY, (Reported) Levothyroxine Sodium (Levothyroxine Sodium) 50 Mcg Tab, 50 MCG PO DAILY, (Reported) Multivitamins (Thera M Plus Tablet) 1 Each Tablet, 1 TAB PO DAILY, (Reported) Simvastatin (Simvastatin) 20 Mg Tablet, 20 MG PO QHS, (Reported) TEGAN BRWON MD Sep 01, 2020 20:01
[2020-09-01 20:20] LABS: IMMUNOGLOBULIN G 358 MG/DL (681-1648)
[2020-09-01] MEDS ORDERED: LevoFLOXacin IV 750 MG in IV 1 EA IV SCH (23:00)
[2020-09-02] VITALS (16 sets, daily range): BP systolic 129–169; BP diastolic 71–98; O2SAT 94–97
[2020-09-02] MEDS: MEROPENEM INJ 1 GM in IV 1 EA IV SCH ×3 (01:57→16:19)
[2020-09-02] MEDS: LEVOTHYROXINE 50MCG TABLET (0.05MG) PO SCH (06:30)
[2020-09-02 06:48] LABS: HEMATOCRIT 44.4 % (42.0-52.0); HEMOGLOBIN 15.1 g/dl (13.5-17.5); MEAN CORPUSCULAR HEMOGLOBIN 32.3 pg (27.0-33.0); MEAN CORPUSCULAR VOLUME 94.9 fl (80.0-96.0); PLATELET COUNT, AUTOMATED 149 10^3/uL (150-450); RED BLOOD COUNT 4.68 10^6/uL (4.30-6.10)
[2020-09-02 06:51] LABS: WHITE BLOOD COUNT 19.2 10^3/uL (4.0-10.0)
[2020-09-02 06:58] LABS: BLOOD UREA NITROGEN 10 MG/DL (7-18); CALCIUM LEVEL 8.9 MG/DL (8.8-10.2); CARBON DIOXIDE LEVEL 29 MEQ/L (21-32); CHLORIDE LEVEL 98 MEQ/L (98-107); CREATININE FOR GFR 0.58 MG/DL (0.70-1.30); GLOMERULAR FILTRATION RATE > 60.0 (>49); GLUCOSE, FASTING 105 MG/DL (70-100); MAGNESIUM LEVEL 2.2 MG/DL (1.8-2.4); POTASSIUM SERUM 4.4 MEQ/L (3.5-5.1); SODIUM LEVEL 132 MEQ/L (136-145)
[2020-09-02 07:03] LABS: ANISOCYTOSIS 1+; ATYPICAL LYMPH 2 % (0-5); LYMPHOCYTES 73 % (16-44); MONOCYTES 1 % (0-5); NEUTROPHILS 22 % (28-66); PLATELET ESTIMATE NORMAL (NORMAL); SMUDGE CELLS 3+
[2020-09-02] MEDS: MULTIVITAMINS/MINERALS THERAP 1 TAB PO SCH (07:50)
[2020-09-02] MEDS: THIAMINE 100 MG TAB PO SCH ×2 (07:50→21:17)
[2020-09-02] MEDS: FOLIC ACID 1 MG TAB PO SCH (07:50)
[2020-09-02] MEDS: LACTOBACILLUS ACIDOPHILUS CAP (BACID) PO SCH ×3 (07:50→16:55)
[2020-09-02] MEDS: EZETIMIBE 10 MG TAB (ZETIA) PO SCH (07:50)
[2020-09-02] MEDS: SODIUM CHLORIDE 1 GM TAB PO SCH ×3 (07:50→21:17)
[2020-09-02] MEDS: MIDODRINE 5 MG TAB PO SCH ×3 (07:50→15:26)
[2020-09-02] MEDS: guaiFENesin ER 600 MG TAB PO SCH ×2 (07:50→21:17)
[2020-09-02 08:27] LABS: CK-MB VALUE MASS < 1.0 NG/ML (<3.6); CPK CREATINE PHOSPHOKINASE 71 U/L (39-308); MB/CK RELATIVE INDEX 1.41 (< OR =4); NT-PRO BNP 357 PG/ML (<125); TROPONIN I < 0.02 NG/ML (< 0.10)
--- NOTE | 2020-09-02 08:30 | IPNPDOC ---
Date Seen The patient was seen on 09/01/20. Progress Note ADDENDUM TO PROGRESS NOTE: Acute hypoxic respiratory failure requiring 50% Fio2 ?Left hilar lung mass postobstructive pneumonia ETOH intoxication-induced syncope aspiration acute metabolic/alcohol induced encephalopathy. Plan: discussed the case with mandrel cleaner police communications dispatcher Dr. Mchugh, who recommended aerosolized oxygen, pulmonary toilet, abx,aspiration precautions, treatment of hyponatremia. VS, I&O, 24H, Fishbone Vital Signs/I&O Vital Signs Date Time Temp Pulse Resp B/P (MAP) Pulse Ox O2 Delivery O2 Flow Rate FiO2 09/01/20 07:44 87 Nasal Cannula 50 09/01/20 07:30 97.9 82 22 98/60 (73) 15.0 I&O- Last 24 Hours up to 6 AM 09/01/20 05:59 Intake Total 150 ml Output Total 275 ml Balance -125 ml Laboratory Data 24H LABS Laboratory Tests 2 08/31/20 16:20: Neutrophils (%) (Auto) , Nucleated Red Blood Cells % (auto) 0.1H, Neutrophils 16L, Lymphocytes (Manual) 77H, Basophils (Manual) 1, Atypical Lymphocytes 6H, Anisocytosis 1+, Smudge Cells 3+, Platelet Estimate NORMAL, Anion Gap 9, Glomerular Filtration Rate > 60.0, Calcium Level 9.0, Magnesium Level 1.9, Total Creatine Kinase 195, Creatine Kinase MB 4.9H, Creatine Kinase MB Relative Index 2.51, Troponin I 0.03, Thyroid Stimulating Hormone (TSH) 4.800H, Free Thyroxine 0.84, Ethyl Alcohol Level 0.034H 08/31/20 18:18: Bedside Glucose (Misc Panel) 116H 08/31/20 19:09: Prothrombin Time 12.0, Prothromb Time International Ratio 0.87, Activated Partial Thromboplast Time 25.8 09/01/20 01:21: Lactic Acid Level 1.0 09/01/20 05:26: Neutrophils (%) (Auto) , Nucleated Red Blood Cells % (auto) 0.0, Neutrophils 16L, Lymphocytes (Manual) 79H, Atypical Lymphocytes 5, Red Blood Cell Morphology NORMAL, Platelet Estimate NORMAL, Anion Gap 7L, Glomerular Filtration Rate > 60.0, Calcium Level 9.2, Magnesium Level 1.8, Total Bilirubin 0.9, Aspartate Amino Transf (AST/SGOT) 39H, Alanine Aminotransferase (ALT/SGPT) 42, Alkaline Phosphatase 51, Total Protein 7.1, Albumin 4.1, Albumin/Globulin Ratio 1.4 09/01/20 09:09: Blood Gas Bicarbonate Standard 25.7, Arterial Blood pH 7.429, Arterial Blood Partial Pressure CO2 40.0, Arterial Blood Partial Pressure O2 58.8L, Arterial Blood Total CO2 27.1, Arterial Blood HCO3 25.9, Arterial Blood Base Excess 1.5, Arterial Blood Oxygen Saturation 91.7L CBC/BMP Laboratory Tests 08/31/20 16:20 09/01/20 05:26 Microbiology Microbiology 08/31/20 Respiratory Virus Panel (PCR) ([facility]) - Final, Complete 08/31/20 Blood Culture, Received Pending 08/31/20 Blood Culture, Received Pending ARIEL COHEN MD Sep 01, 2020 10:45
--- NOTE | 2020-09-02 08:36 | ECHO ---
DATE OF PROCEDURE: 08/31/2020 Age: 69 Gender: Male Height: 65 inches Weight: 62 kg REFERRING PHYSICIAN: Viviana Ruth MD. INDICATION: Syncope. MEASUREMENTS: 2D Measurements: Proximal ascending aorta 4.2 cm Aortic root 4.0 cm Left atrium 3.5 cm Intraventricular septum 1.16 cm Posterior wall 1.21 cm Left ventricle diastole 3.5 cm Inferior vena cava 0.8 cm (more than 50% respiratory variation) Doppler Measurements: Moderate aortic regurgitation No aortic stenosis Aortic valve velocity 207 cm/s LVOT velocity 197 cm/s LVOT VTI 32.5 cm No mitral regurgitation No mitral stenosis Mitral E velocity 41.6 cm/s Mitral A velocity 79.7 cm/s Mild tricuspid regurgitation Estimated right ventricular systolic pressure 28-33 mmHg Estimated right atrial pressure 5-10 mmHg No pulmonic regurgitation Pulmonary artery acceleration time 95 msec MITRAL ANNULAR TISSUE DOPPLER E prime septal 3.6 cm/s, E prime lateral 4.9 cm/s DESCRIPTION: Rhythm was sinus. This was a moderately technically difficult echocardiogram. No aortic arch view available (technically difficult). No pericardial effusion. This was a 2D, M-mode, color flow Doppler, and pulsed wave Doppler examination including mitral annular tissue Doppler. CONCLUSIONS: 1. Borderline concentric left ventricular hypertrophy. Hyperdynamic LV systolic function. LVEF 75% by visual estimate. No regional LV wall motion abnormalities. Grade 1 LV diastolic dysfunction (impaired relaxation filling pattern). 2. Moderate aortic valve sclerosis of a 3-cuspid aortic valve. Moderate aortic regurgitation. No aortic stenosis. 3. Mild dilatation of both the aortic root at the level of the sinus of Valsalva (4.0 cm) and the proximal ascending aorta (4.2 cm). 4. Suggestive of mild elevation of pulmonary artery systolic pressure and estimated right ventricle systolic pressure to be near the upper limits of normal to mildly elevated. Suggestive of normal CVP. 5. No pericardial effusion. MTDD
--- NOTE | 2020-09-02 08:39 | IPNPDOC ---
Date Seen The patient was seen on 09/02/20. Progress Note S: sitting on the side of the bed cleaning his dentures with a tooth brush sob but improved. cough productive of loose sputum no f/c. mentation back to baseline. high etoh level intoxicated on admission admits to drinking many beers because of problems with his significant other. no abd pain/n/v/diarrhea/constipation. needing vapotherm, but using his spirometer 2.25ml at bedside and acapella device. O: PE: vitals:see below GENERAL: Patient is awake, alert, oriented to himself, able to speak in full sentences.no tripod positioning HEENT: no jvd Cachectic appearing. No JVD or thyromegaly. Moist mucous membranes. HEART: S1, S2, sinus rhythm. No murmurs, rubs or gallops. LUNGS: Diminished breath sounds on the left with crackles. ABDOMEN: Soft, nontender, non-distended. Positive bowel sounds. EXTREMITIES: No cyanosis, clubbing or pitting edema. LABORATORY DATA: see below IMAGING STUDIES: CT chest revealed moderate left lung fibro-atelectasis, minimal infiltrate with consolidation left lower lobe, volume loss in the left lung, descending thoracic aorta measuring 45 mm. No pneumothorax or pleural effusion. No cardiomegaly. No pericardial effusion. Precarinal AP lymph nodes less well defined since prior study with slight induration of surrounding mediastinal fat and maybe slightly increased from previous, old granulomatous disease, no PE. ASSESSMENT AND PLAN: This is a 69-year-old male admitted on 08/31/2020 with past medical history significant for laryngeal cancer; status post radiation, prostate cancer; status post radical prostatectomy, chronic lymphocytic leukemia, small lymphocytic lymphoma, hypertension, hyponatremia, hypothyroidism, who was admitted due to syncopal episode at home, could not remember what happened while he was at his daughter's house. Patient had some chills on arrival and was found in the ER to have a post obstructive pneumonia on the left. He was treated with I.V. Levaquin due to penicillin allergy. Patient continued to have worsening white count to 35,000, sodium level decreasing from 129,000 to 125,000, and remained hypoxic requiring Venturi Mask with 15 liters flow rate, FIO2 of 50%. Respiratory panel was negative for Coronavirus. CURRENT ISSUES: 1. Acute hypoxic respiratory failure secondary to a new left lung mass along with a post obstructive pneumonia: on vapotherm 100%fio2 now. aggressive pulmonary toilet with chest physiotherapy, Acapella and incentive spirometry. Keep saturations above 90% at least. Supportive care . s/p I.V. Levaquin. now on I.V. Meropenem at 500 mg every 8 hours. discussed case with Dr. Mchugh 09/01 no formal consult or new recommendations aside from supportive care, signed out to Dr. Rivera 2. Post obstructive pneumonia with atelectasis/left-sided lung mass: Patient is medically unstable to undergo CT guided biopsy and most likely cannot be reached., bronchoscopy once respiratory distress has improved. , Dr. Beltre, from the [facility] consulted. 3. Syncope due to symptomatic hyponatremia from ?lung mass, and ETOH intoxication. sodium level at 125 given sodium tabs and one dose of samsca. improved now. Echocardiogram has been ordered. Patient is currently on telemetry. Continue on supportive care for now. 4. Hyponatremia as above 5. History of CLL, small lymphocytic lymphoma, prostate cancer; status post radical prostatectomy, laryngeal cancer; status post radiation: Defer to medical oncologist for any further changes. 6. Hypertension: Currently with low blood pressure, therefore will discontinue patient's home medications. 7. Hypothyroidism: May continue on Synthroid. 8. Alcohol intoxication on admission: most likely cause of syncope at home. 9. Possible Aspiration from alcohol intoxication with hypoxia: aspiration precautions. swallow eval. 10. Acute metabolic encephalopathy: due pneumonia, aspiration, hypoxia, etohand hyponatremia disposition: wean down o2. once on nasal cannula may tx to [facility]. CODE STATUS: Full code. VS, I&O, [facility] Sign[facility]/I&O Vital Signs Date Time Temp Pulse Resp B/P (MAP) Pulse Ox O2 Delivery O2 Flow Rate FiO2 09/02/20 07:32 98.0 85 24 142/88 (106) 98 HVNI-Vapotherm 20.0 100 I&O- Last 24 Hours up to 6 AM 09/02/20 06:00 Intake Total 100 ml Output Total 1100 ml Balance -1000 ml Laboratory Data 24H LABS Laboratory Tests 2 09/01/20 09:09: Blood Gas Bicarbonate Standard 25.7, Arterial Blood pH 7.429, Arterial Blood Partial Pressure CO2 40.0, Arterial Blood Partial Pressure O2 58.8L, Arterial Blood Total CO2 27.1, Arterial Blood HCO3 25.9, Arterial Blood Base Excess 1.5, Arterial Blood Oxygen Saturation 91.7L 09/01/20 12:07: Anion Gap 10, Glomerular Filtration Rate > 60.0, Calcium Level 9.4 09/01/20 17:43: Anion Gap 8, Glomerular Filtration Rate > 60.0, Calcium Level 8.6L 09/01/20 19:30: Prostate Specific Antigen Screen < 0.01, Immunoglobulin G 358L 09/02/20 06:02: Neutrophils (%) (Auto) , Nucleated Red Blood Cells % (auto) 0.0, Neutrophils 22L, Band Neutrophils 2, Lymphocytes (Manual) 73H, Monocytes (Manual) 1, Atypical Lymphocytes 2, Anisocytosis 1+, Smudge Cells 3+, Platelet Estimate NORMAL, Anion Gap 5L, Glomerular Filtration Rate > 60.0, Calcium Level 8.9, Magnesium Level 2.2, Total Creatine Kinase 71, Creatine Kinase MB < 1.0, Creatine Kinase MB Relative Index 1.41, Troponin I < 0.02#, YQ-Mom-[id number]-Type Natriuretic Peptide 357H CBC/BMP Laboratory Tests 09/01/20 12:07 09/01/20 17:43 09/02/20 06:02 Microbiology Microbiology 08/31/20 Respiratory Virus Panel (PCR) ([facility]) - Final, Complete 08/31/20 Blood Culture - Preliminary, Resulted No growth after 24 hours . All specim... 08/31/20 Blood Culture - Preliminary, Resulted No growth after 24 hours . All specim... ARIEL COHEN MD Sep 02, 2020 08:30
--- NOTE | 2020-09-02 09:41 | REP ---
INDICATION: hypoxic. COMPARISON: 08/31/2020. TECHNIQUE: Single portable AP view of the chest was performed. FINDINGS: There is new parenchymal opacity in the left lung base representing consolidative atelectasis or infiltrate. Right lung remains clear. Heart is not significantly enlarged. Mediastinal silhouette is unchanged. IMPRESSION: Atelectasis/infiltrate left lung base. <Electronically signed by Gorge Levy > 09/02/20 0937
[2020-09-02] MEDS ORDERED: IMMUNE GLOBULIN 10% 10 GM in IV 1 EA IV ONE (17:00)
[2020-09-02] MEDS ORDERED: IMMUNE GLOBULIN 10% 20 GM in IV 1 EA IV ONE (18:00)
[2020-09-02] MEDS: SIMVASTATIN 20 MG TAB PO SCH (21:17)
[2020-09-03] VITALS (23 sets, daily range): BP systolic 136–162; BP diastolic 72–90; O2SAT 93–98
[2020-09-03] MEDS: MEROPENEM INJ 1 GM in IV 1 EA IV SCH ×3 (01:08→16:57)
[2020-09-03 06:09] LABS: HEMATOCRIT 40.1 % (42.0-52.0); HEMOGLOBIN 13.3 g/dl (13.5-17.5); MEAN CORPUSCULAR HEMOGLOBIN 31.5 pg (27.0-33.0); MEAN CORPUSCULAR HGB CONC 33.2 g/dl (32.0-36.5); PLATELET COUNT, AUTOMATED 133 10^3/uL (150-450); RED BLOOD COUNT 4.22 10^6/uL (4.30-6.10)
[2020-09-03 06:13] LABS: BLOOD UREA NITROGEN 11 MG/DL (7-18); CALCIUM LEVEL 8.2 MG/DL (8.8-10.2); CARBON DIOXIDE LEVEL 28 MEQ/L (21-32); CHLORIDE LEVEL 99 MEQ/L (98-107); CREATININE FOR GFR 0.47 MG/DL (0.70-1.30); GLOMERULAR FILTRATION RATE > 60.0 (>49); GLUCOSE, FASTING 105 MG/DL (70-100); MAGNESIUM LEVEL 1.9 MG/DL (1.8-2.4); POTASSIUM SERUM 3.9 MEQ/L (3.5-5.1); SODIUM LEVEL 133 MEQ/L (136-145)
[2020-09-03 06:18] LABS: WHITE BLOOD COUNT 16.2 10^3/uL (4.0-10.0)
[2020-09-03] MEDS: LEVOTHYROXINE 50MCG TABLET (0.05MG) PO SCH (06:33)
[2020-09-03 07:07] LABS: ATYPICAL LYMPH 1 % (0-5); EOSINOPHILS 1 % (0-3); LYMPHOCYTES 68 % (16-44); MONOCYTES 7 % (0-5); NEUTROPHILS 22 % (28-66)
[2020-09-03 07:08] LABS: ANISOCYTOSIS 1+; PLATELET ESTIMATE DECREASED (NORMAL)
[2020-09-03] MEDS: FOLIC ACID 1 MG TAB PO SCH (08:47)
[2020-09-03] MEDS: guaiFENesin ER 600 MG TAB PO SCH ×2 (08:47→20:11)
[2020-09-03] MEDS: LACTOBACILLUS ACIDOPHILUS CAP (BACID) PO SCH ×3 (08:47→17:00)
[2020-09-03] MEDS: THIAMINE 100 MG TAB PO SCH ×2 (08:47→20:12)
[2020-09-03] MEDS: SODIUM CHLORIDE 1 GM TAB PO SCH ×3 (08:47→20:12)
[2020-09-03] MEDS: MIDODRINE 5 MG TAB PO SCH (08:47)
[2020-09-03] MEDS: EZETIMIBE 10 MG TAB (ZETIA) PO SCH (08:47)
[2020-09-03] MEDS: MULTIVITAMINS/MINERALS THERAP 1 TAB PO SCH (08:48)
--- NOTE | 2020-09-03 15:15 | IPN ---
PROGRESS NOTE DATE: 09/03/2020 SUBJECTIVE: Patient continues to have shortness of breath, but significantly improved and has been taken off Vapotherm, currently on nasal cannula 3 liters, 97%. He complains of cough but difficult to expectorate, a lot looser than yesterday when it was thicker. He denies any chills, nausea, vomiting, abdominal pain. He is ambulating from bed to the bathroom, but is tied down to his oxygen and intravenous (IV) lines and could not ambulate outside the room. He otherwise denies any recurrent near syncopal episode. Despite alcohol toxication on admission, he denies any tremors, paresthesias, hallucinations. No other issues per nursing overnight. Telemetry shows sinus rhythm, ventricular rate of 79-82, afebrile. OBJECTIVE: PHYSICAL EXAMINATION: VITAL SIGNS: Temperature 98.1, pulse 79, respiratory rate 18, blood pressure 136/79, 97% on 3 liters nasal cannula. GENERAL: Patient is awake, alert, oriented to person, place and time, answering questions appropriately. No tripod positioning. No pallor or cyanosis. No use of respiratory accessory muscles. Able to complete his sentences without conversational dyspnea. HEENT: No jugular venous distention (JVD). No thyromegaly. No cervical lymphadenopathy. Moist mucous membranes. No stridor. There are no carotid bruits. HEART: S1, S2. Sinus rhythm. No murmurs, rubs or gallops. No carotid bruits. No pitting edema. LUNGS: Diminished breath sounds with crackles at the left base. Air entry is much improved. No wheezing. ABDOMEN: Soft, nontender, nondistended. Positive bowel sounds. No rebound or guarding. EXTREMITIES: No cyanosis, clubbing or any pitting edema. LABORATORY DATA: White count 16.2,, hemoglobin 13, hematocrit 40, platelet count 133. Admission platelet count was 156. Sodium 133, potassium 3.9, chloride 99, bicarbonate 28, BUN 11, creatinine 0.47, glucose 105, magnesium 1.9. MICROBIOLOGY: Respiratory panel negative. Blood cultures negative. ASSESSMENT AND PLAN: This is a 69-year-old male admitted on 09/01/2020 with prior history of laryngeal cancer (CA) status post radiation, prostate cancer status post radical prostatectomy, chronic lymphocytic leukemia (CLL), small lymphocytic lymphoma, hypertension, chronic hyponatremia, hypothyroidism, admitted due to shortness of breath, distress and syncopal episode at home, was found to have alcohol intoxication, new left-sided lung mass and postobstructive pneumonia. Patient was placed on IV Levaquin due to penicillin allergy on admission, but white count was elevated at 29.2, increased to 37.4 and was changed to IV meropenem with decrease in white count to 16.2 today and remains afebrile. Patient was extremely hypoxic and required Vapotherm, which was titrated to 100% FiO2. He had received IVIg yesterday with current white count of 16.2 off Vapotherm and currently saturating 97% on 3 liters nasal cannula. Acute medical issues are as follows: 1. Acute hypoxic respiratory failure secondary to new left lung mass with postobstructive pneumonia, atelectasis. Patient has been needing Vapotherm, but that was discontinued yesterday. He is clinically improved after IVIg and continued on meropenem and supplemental oxygen, aggressive pulmonary toilet, which has physiotherapy, Acapella and incentive spirometry. Keep saturations at least 90% to 92%. He did receive IV Levaquin initially, currently on IV meropenem. 2. Postobstructive pneumonia/sepsis with atelectasis complicated by a left-sided lung mass. Patient is medically unstable to undergo bronchoscopy due to significant respiratory distress requiring Vapotherm. He has received IVIg on 09/02/2020, currently receiving IV meropenem, which was started on 09/01/2020. 3. Left lung mass. Bronchoscopy postponed until patient's acute infection issue and respiratory status is improved. Defer to pulmonary to determine if patient requires inpatient versus outpatient. Per radiology, the hilar mass cannot be accessed via CT guided biopsy; therefore, bronchoscopy would be a better choice. 4. Syncope secondary to symptomatic hyponatremia from lung mass with possible malignancy as well as alcohol intoxication. Patient was given one dose of Samsca and sodium tablets. Patient had improved since and currently with normal sodium level. Patient was advised not to continue with alcohol abuse at home. 4. Symptomatic hyponatremia status post Samsca and sodium tablets. Resolved. 5. Alcohol intoxication. Likely cause of patient's syncopal episode at home. Patient had been depressed about his significant other, but denied any suicidal or homicidal tendencies. 6. History of CLL/small lymphocytic lymphoma/prostate cancer status post radical prostatectomy/laryngeal cancer status post radiation. Medical oncologist, Dr. Beltre, has been consulted. Patient now has a new lung mass. Defer to oncology for further workup. Bronchoscopy per iphone developer once the patient's respiratory status has improved. 7. Hypertension. Off blood pressure medications due to low blood pressure. 8. Hypothyroidism. On chronic Synthroid. DISPOSITION: Medically stable for medical/surgical floor transfer; however, will continue to need at least five days of antibiotics. MTDD
[2020-09-03] MEDS: SIMVASTATIN 20 MG TAB PO SCH (20:11)
[2020-09-04] VITALS (23 sets, daily range): BP systolic 123–173; BP diastolic 78–94; O2SAT 91–97
[2020-09-04] MEDS: MEROPENEM INJ 1 GM in IV 1 EA IV SCH ×3 (00:32→16:08)
[2020-09-04] MEDS: LEVOTHYROXINE 50MCG TABLET (0.05MG) PO SCH (05:14)
[2020-09-04 06:57] LABS: HEMATOCRIT 38.6 % (42.0-52.0); HEMOGLOBIN 12.9 g/dl (13.5-17.5); MEAN CORPUSCULAR HGB CONC 33.4 g/dl (32.0-36.5); MEAN CORPUSCULAR VOLUME 95.8 fl (80.0-96.0); PLATELET COUNT, AUTOMATED 143 10^3/uL (150-450); RED BLOOD COUNT 4.03 10^6/uL (4.30-6.10)
[2020-09-04 07:01] LABS: BLOOD UREA NITROGEN 10 MG/DL (7-18); CALCIUM LEVEL 9.4 MG/DL (8.8-10.2); CARBON DIOXIDE LEVEL 27 MEQ/L (21-32); CHLORIDE LEVEL 99 MEQ/L (98-107); CREATININE FOR GFR 0.46 MG/DL (0.70-1.30); GLOMERULAR FILTRATION RATE > 60.0 (>49); GLUCOSE, FASTING 110 MG/DL (70-100); SODIUM LEVEL 133 MEQ/L (136-145)
[2020-09-04 07:02] LABS: WHITE BLOOD COUNT 15.1 10^3/uL (4.0-10.0)
[2020-09-04 07:45] LABS: ATYPICAL LYMPH 1 % (0-5); LYMPHOCYTES 69 % (16-44); MONOCYTES 3 % (0-5); MYELOCYTES 1 % (0-0); NEUTROPHILS 24 % (28-66); PLATELET ESTIMATE DECREASED (NORMAL)
[2020-09-04 07:46] LABS: ANISOCYTOSIS 1+
[2020-09-04] MEDS: EZETIMIBE 10 MG TAB (ZETIA) PO SCH (08:57)
[2020-09-04] MEDS: MULTIVITAMINS/MINERALS THERAP 1 TAB PO SCH (08:57)
[2020-09-04] MEDS: SODIUM CHLORIDE 1 GM TAB PO SCH ×3 (08:57→21:02)
[2020-09-04] MEDS: LACTOBACILLUS ACIDOPHILUS CAP (BACID) PO SCH ×3 (08:57→17:37)
[2020-09-04] MEDS: guaiFENesin ER 600 MG TAB PO SCH ×2 (08:57→21:02)
[2020-09-04] MEDS: FOLIC ACID 1 MG TAB PO SCH (08:57)
--- NOTE | 2020-09-04 10:30 | IPN ---
PROGRESS NOTE DATE: 09/04/2020 SUBJECTIVE: The patient seen again at the bedside. Chart has been reviewed. He has continued to be hypoxic, requiring two liters nasal cannula, saturating 93 to 98%. He complains of cough productive of thick, white yellow sputum, no fever or chills overnight, no nausea or vomiting, tolerating his diet well. OBJECTIVE: Vitals: Temperature 97, pulse 66, respiratory rate 18, blood pressure 140/78, 98% on two liters nasal cannula. General: The patient is awake, alert and oriented to person, place and time, no pallor, no icterus or jaundice. No use of respiratory accessory muscles. Able to complete full sentences without conversational dyspnea. HEENT: No JVD or thyromegaly. Dry mucous membranes. No stridor. There is no use of respiratory accessory muscles. Heart: S1, S2, sinus rhythm, no murmurs, rubs or gallops. Lungs: Diminished with fine crackles at the left base. Abdomen: Soft, nontender, nondistended. Extremities: No cyanosis, clubbing or pitting edema. LABORATORY DATA: White count 15, hemoglobin 12, hematocrit 38, platelets 143. Admission platelet count 156. Sodium 133, potassium 4, chloride 99, bicarb 27, BUN 10, creatinine 0.46, glucose of 110. Microbiology: Respiratory panel negative. Two sets of blood cultures negative. ASSESSMENT AND PLAN: This is a 69-year-old male with history of laryngeal cancer, status post radiation, prostate cancer, status post radical prostatectomy, CLL, small lymphocytic lymphoma, hypertension, chronic hyponatremia, hypothyroidism, admitted due to complaints of shortness of breath, respiratory distress, syncopal episode at home with alcohol intoxication, admitted on with acute hypoxic respiratory failure, aspiration pneumonia with a new left-sided lung mass, post-obstructive pneumonia with alcohol intoxication as possible cause for syncopal episode. The patient was initially given intravenous Levaquin on admission in the ER due to penicillin allergy with white count of 29,000, increased to 37.4, after 24 hours changed to IV meropenem with decreased white count of 16.2 and remained afebrile. The patient was extremely hypoxic on admission, required Vapotherm, titrated all the way up to 100% FiO2. His oncologist recommended IVIG 30 grams with significant improvement and currently now on three liters nasal cannula, saturating 93-97% saturation. ACUTE MEDICAL ISSUES: 1. Acute hypoxic respiratory failure secondary to new left lung mass with possible malignancy and postobstructive pneumonia as well as significant atelectasis. The patient required Vapotherm on admission but currently on nasal cannula. Status post IVIG currently on IV meropenem, aggressive pulmonary toilet, chest physiotherapy, Acapella and incentive spirometry. His case was discussed with visual basic programmer, Dr. Mchugh on and signed out by Dr. Mchugh to Dr. Rivera with no acute need for bronchoscopy. 2. Postobstructive pneumonia secondary to a new left lung mass with sepsis along with significant atelectasis. The patient is still medically unstable to undergo bronchoscopy due to respiratory distress and acute infection. He received IVIG and had significant improvement in his respiratory status still on IV meropenem which was given on 09/01/2020 and one dose of Levaquin on admission. 3. Left lung mass. Bronchoscopy has been postponed due to patient's acute hypoxic respiratory failure, respiratory distress and acute infection. Medical Referral Coordinator, Dr. Mchugh, reviewed his case and felt that was no urgent need for bronchoscopy to determine if the lung mass is a malignancy. At this time, it is much more important to get the patient's infection and respiratory distress resolved. Therefore, we will consult formally on Saturday or Saturday depending on patient's clinical respiratory status. We will defer to visual basic programmer at that time to determine the need for emergent bronchoscopy for diagnostic purposes. 4. Syncope secondary to symptomatic anemia from the lung mass which could be a possible malignancy as well as alcohol intoxication. The patient had possible aspiration secondary to alcohol intoxication. He was given supportive care with IV antibiotics, IV Samsca for sodium and sodium tablets and given IVIG for the acute infection due to chronic immunocompromised state with significant improvement in his respiratory status. Echocardiogram was ordered. Telemetry does not show any significant etiology for heart-related syncopal episode. 5. Symptomatic anemia resolved. He is now back to his baseline mentation. He is status post Samsca and still currently on sodium tablets. 6. Alcohol intoxication secondary to depression after having emotional issues with his significant other. His two daughters are very supportive. He does not exhibit any suicidal or homicidal tendencies at this time and says that this was a one time alcohol binge and he denies any history of alcohol abuse. He was counseled against continuing this behavior as this can cause worsening respiratory status and mental state. 7. History of CLL, small lymphocytic lymphoma, prostate CA, status post radical prostatectomy, laryngeal CA, status post radiation. The patient is followed by medical oncologist, Dr. Beltre who recommended IVIG due to acute infection with significant improvement in his clinical status especially his need for supplemental oxygen, now off VAPOTHERM The patient now has a new lung mass. However, he is clinically unstable to undergo bronchoscopy. This case was discussed with visual basic programmer, Dr. Mchugh who has signed out to Dr. Rivera. There is no formal pulmonary consult as the patient is clinically not stable to undergo bronchoscopy. We will consult pulmonology on Saturday or Saturday depending on patient's clinical state. We will defer to visual basic programmer as to when the patient should undergo bronchoscopy. 8. Hypertension. The patient was taken off blood pressure medications due to low blood pressure. 9. Hypothyroidism. On chronic Synthroid. DISPOSITION: The patient will need two more days of inpatient hospital stay to wait for improvement in his clinical status and weaning him off the oxygen if possible to keep saturations between 90-92%. We will also need to consult pulmonary to see if inpatient bronchoscopy would be appropriate. MTDD
[2020-09-04] MEDS ORDERED: amLODIPine 5 MG TAB PO SCH (21:00)
[2020-09-04] MEDS: SIMVASTATIN 20 MG TAB PO SCH (21:02)
[2020-09-05] VITALS (13 sets, daily range): BP systolic 160–184; BP diastolic 80–98; O2SAT 92–97
[2020-09-05] MEDS: MEROPENEM INJ 1 GM in IV 1 EA IV SCH ×4 (00:20→23:41)
[2020-09-05] MEDS: LEVOTHYROXINE 50MCG TABLET (0.05MG) PO SCH (06:17)
[2020-09-05] MEDS: EZETIMIBE 10 MG TAB (ZETIA) PO SCH (09:05)
[2020-09-05] MEDS: SODIUM CHLORIDE 1 GM TAB PO SCH ×3 (09:05→20:58)
[2020-09-05] MEDS: FOLIC ACID 1 MG TAB PO SCH (09:06)
[2020-09-05] MEDS: bisoproloL fumarate 10 MG TAB PO SCH (09:06)
[2020-09-05] MEDS: LACTOBACILLUS ACIDOPHILUS CAP (BACID) PO SCH ×3 (09:06→18:00)
[2020-09-05] MEDS: guaiFENesin ER 600 MG TAB PO SCH ×2 (09:06→20:58)
[2020-09-05] MEDS: MULTIVITAMINS/MINERALS THERAP 1 TAB PO SCH (09:06)
--- NOTE | 2020-09-05 11:06 | IPNPDOC ---
Date Seen The patient was seen on 09/05/20. Progress Note SUBJECTIVE: Patient today continues to have a productive cough but a lot looser than on admission. No fever, chills. Patient is much more comfortable. No shortness of breath or dyspnea on exertion. Denies any chest pain OBJECTIVE: PHYSICAL EXAM . VITALS: See below General: Eating his breakfast sitting at the bedside The patient is awake, alert and oriented to person, place and time, no pallor, no icterus or jaundice. No use of respiratory accessory muscles. Able to complete full sentences without conversational dyspnea., No distress HEENT: No JVD or thyromegaly. Moist mucous membranes. No stridor. There is no use of respiratory accessory muscles. Heart: S1, S2, sinus rhythm, no murmurs, rubs or gallops. Lungs: Diminished with fine crackles at the left base. Abdomen: Soft, nontender, nondistended. Extremities: No cyanosis, clubbing or pitting edema. LABORATORY DATA: See below ASSESSMENT AND PLAN: This is a 69-year-old male with history of laryngeal cancer, status post radiation, prostate cancer, status post radical prostatectomy, CLL, small lymphocytic lymphoma, hypertension, chronic hyponatremia, hypothyroidism, admitted due to complaints of shortness of breath, respiratory distress, syncopal episode at home with alcohol intoxication, admitted on with acute hypoxic respiratory failure, aspiration pneumonia with a new left-sided lung mass, post-obstructive pneumonia with alcohol intoxication as possible cause for syncopal episode. The patient was initially given intravenous Levaquin on admission in the ER due to penicillin allergy with white count of 29,000, increased to 37.4, after 24 hours changed to IV meropenem with decreased white count of 16.2 and remained afebrile. The patient was extremely hypoxic on admission, required Vapotherm, titrated all the way up to 100% FiO2. His oncologist recommended IVIG 30 grams with significant improvement and currently now on three liters nasal cannula, saturating 93-97% saturation. ACUTE MEDICAL ISSUES: 1. Acute hypoxic respiratory failure secondary to new left lung mass with possible malignancy and postobstructive pneumonia as well as significant atelectasis. The patient required Vapotherm on admission but currently on nasal cannula. Status post IVIG currently on IV meropenem, aggressive pulmonary toilet, chest physiotherapy, Acapella and incentive spirometry. Consulted head refrigerating engineer, Dr. Rivera to decide if patient is medically stable to undergo bronchoscopy for diagnostic purposes prior to hospital discharge 2. Postobstructive pneumonia secondary to a new left lung mass with sepsis along with significant atelectasis. He received IVIG per his medical oncologist and had significant improvement in his respiratory status still on IV meropenem which was given on 09/01/2020 and one dose of Levaquin on admission. 3. Left lung mass. Bronchoscopy has been postponed due to patient's acute hypoxic respiratory failure, respiratory distress and acute infection. Consulted head refrigerating engineer, Dr. Rivera to decide if patient is medically stable to undergo bronchoscopy for diagnostic purposes prior to hospital discharge 4. Syncope secondary to symptomatic anemia from the lung mass which could be a possible malignancy as well as alcohol intoxication. The patient had possible aspiration secondary to alcohol intoxication. He was given supportive care with IV antibiotics, IV Samsca for sodium and sodium tablets and given IVIG for the acute infection due to chronic immunocompromised state with significant improvement in his respiratory status. Echocardiogram was ordered. Telemetry does not show any significant etiology for heart-related syncopal episode. 5. Symptomatic anemia resolved. back to his baseline mentation. He is status post Samsca and still currently on sodium tablets. 6. Alcohol intoxication secondary to depression after having emotional issues with his significant other. His two daughters are very supportive. He does not exhibit any suicidal or homicidal tendencies at this time and says that this was a one time alcohol binge and he denies any history of alcohol abuse. He was counseled against continuing this behavior as this can cause worsening respiratory status and mental state. 7. History of CLL, small lymphocytic lymphoma, prostate CA, status post radical prostatectomy, laryngeal CA, status post radiation. The patient is followed by medical oncologist, Dr. Beltre who recommended IVIG due to acute infection with significant improvement in his clinical status especially his need for supplemental oxygen, now off VAPOTHERM . 8. Hypertension. The patient was taken off blood pressure medications due to low blood pressure. 9. Hypothyroidism. On chronic Synthroid. DISPOSITION: Await decision for bronchoscopy. VS, I&O, 24H, Fishbone Vital Signs/I&O Vital Signs Date Time Temp Pulse Resp B/P (MAP) Pulse Ox O2 Delivery O2 Flow Rate FiO2 09/05/20 10:00 97 Nasal Cannula 2.0 09/05/20 09:06 66 184/98 09/05/20 08:00 97.1 18 09/02/20 16:00 60 I&O- Last 24 Hours up to 6 AM 09/05/20 06:00 Intake Total 1850 ml Output Total 1350 ml Balance 500 ml Laboratory Data Microbiology Microbiology 08/31/20 Respiratory Virus Panel (PCR) ([facility]) - Final, Complete 08/31/20 Blood Culture - Preliminary, Resulted No Growth after 72 hours. All specime... 08/31/20 Blood Culture - Preliminary, Resulted No Growth after 72 hours. All specime... ARIEL COHEN MD September 05, 2020 10:58
[2020-09-05] MEDS ORDERED: amLODIPine 5 MG TAB PO ONE (15:00)
[2020-09-05] MEDS ORDERED: cloNIDine 0.1MG TABLET PO ONE (18:40)
[2020-09-05] MEDS: SIMVASTATIN 20 MG TAB PO SCH (20:58)
[2020-09-06 04:00] VITALS: BP 158/86
[2020-09-06] MEDS: LEVOTHYROXINE 50MCG TABLET (0.05MG) PO SCH (05:14)
[2020-09-06 05:38] LABS: HEMATOCRIT 40.3 % (42.0-52.0); HEMOGLOBIN 13.5 g/dl (13.5-17.5); MEAN CORPUSCULAR HEMOGLOBIN 32.5 pg (27.0-33.0); MEAN CORPUSCULAR HGB CONC 33.5 g/dl (32.0-36.5); MEAN CORPUSCULAR VOLUME 96.9 fl (80.0-96.0); PLATELET COUNT, AUTOMATED 205 10^3/uL (150-450); RED BLOOD COUNT 4.16 10^6/uL (4.30-6.10); WHITE BLOOD COUNT 16.7 10^3/uL (4.0-10.0)
[2020-09-06 06:01] LABS: BLOOD UREA NITROGEN 13 MG/DL (7-18); CALCIUM LEVEL 9.4 MG/DL (8.8-10.2); CARBON DIOXIDE LEVEL 29 MEQ/L (21-32); CHLORIDE LEVEL 100 MEQ/L (98-107); CREATININE FOR GFR 0.51 MG/DL (0.70-1.30); GLOMERULAR FILTRATION RATE > 60.0 (>49); GLUCOSE, FASTING 90 MG/DL (70-100); POTASSIUM SERUM 4.6 MEQ/L (3.5-5.1); SODIUM LEVEL 135 MEQ/L (136-145)
[2020-09-06 08:00] VITALS: BP 188/94
[2020-09-06] MEDS: MULTIVITAMINS/MINERALS THERAP 1 TAB PO SCH (08:39)
[2020-09-06] MEDS: MEROPENEM INJ 1 GM in IV 1 EA IV SCH ×2 (08:39→16:47)
[2020-09-06 08:40] VITALS: BP 188/94
[2020-09-06] MEDS: guaiFENesin ER 600 MG TAB PO SCH (08:40)
[2020-09-06] MEDS: EZETIMIBE 10 MG TAB (ZETIA) PO SCH (08:40)
[2020-09-06] MEDS: bisoproloL fumarate 10 MG TAB PO SCH (08:40)
[2020-09-06] MEDS: FOLIC ACID 1 MG TAB PO SCH (08:41)
[2020-09-06] MEDS: LACTOBACILLUS ACIDOPHILUS CAP (BACID) PO SCH ×2 (08:41→12:54)
[2020-09-06] MEDS: SODIUM CHLORIDE 1 GM TAB PO SCH ×2 (08:41→16:47)
[2020-09-06 12:00] VITALS: BP 162/82
[2020-09-06] MEDS ORDERED: MUCI600T31 PO (12:16)
[2020-09-06] MEDS ORDERED: DOXY-350 PO (12:16)
[2020-09-06] MEDS ORDERED: LISI10TA22 PO (12:16)
[2020-09-06] MEDS ORDERED: AMLO1TAB25 PO (12:16)
[2020-09-06] MEDS ORDERED: CLIN150C15 PO (12:16)
[2020-09-06] MEDS ORDERED: RISATAB3 PO (12:16)
--- NOTE | 2020-09-06 21:00 | DS.PDOC ---
Discharge Summary General Date of Admission Aug 31, 2020 at 23:24 Date of Discharge 09/06/20 Attending Physician: Flakita Holt MD Discharge Summary HISTORY OF PRESENT ILLNESS: Patient is a 69-year-old male who presented to the emergency department via EMS after passing out while eating. Patient states he was eating a turkey wrap and all of a sudden passed out. Patient was at his [facility] house when this happened. According to the history received in the emergency department physician, there was apparently an episode of shaking. Patient came to and remembers the ride to the emergency department. Patient denies having any issues with eating such as choking or coughing while he eats. Patient's only complaint at this time is rib pain on the left lower rib cage. Patient has a history of CLL which he follows with oncology for. Patient also has a history of throat and prostate cancer that were treated with both surgery and radiation. Patient states he does not feel dizzy or lightheaded at this time. Patient feels otherwise well. HOSPITAL COURSE: PAST MEDICAL HISTORY: 1. History of laryngeal cancer status post radiation. 2. History of prostate cancer status post radical prostatectomy. 3. CLL/small lymphocytic lymphoma. 4. Hypertension 5. Hyponatremia 6. Hypothyroidism PAST SURGICAL HISTORY: 1. Bilateral hip replacement. 2. Left ankle surgery. 3. Left wrist surgery. 4. Throat biopsy 5. Robotic -assisted radical prostatectomy 6. Penile implant 7. Axillary lymph node removal SOCIAL HISTORY: Patient states that he had quit smoking and drinking alcohol for 17 years until about 2 months ago. Patient denies any illicit substances. Patient says he drinks about 6 beers or more a day and had 2 beers prior to coming into the emergency department. FAMILY HISTORY: Patient denies any diseases that he knows that run in the family DISCHARGE MEDS: Please see below PHYSICAL EXAM VITALS: See below General: NAD, sitting up in bed, AAOx 3, slightly hard of hearing HEENT: No JVD or thyromegaly. Moist mucous membranes. No stridor. There is no use of respiratory accessory muscles. Heart: S1, S2, sinus rhythm, no murmurs, rubs or gallops. Lungs: Diminished b/l but no crackles, rhonchi or wheezing Abdomen: Soft, nontender, nondistended. Extremities: No cyanosis, clubbing or pitting edema. LABORATORY DATA: See below IMAGING: Echo: 1. Borderline concentric left ventricular hypertrophy. Hyperdynamic LV systolicfunction. LVEF 75% by visual estimate. No regional LV wall motion abnormalities.Grade 1 LV diastolic dysfunction (impaired relaxation filling pat tern). 2. Moderate aortic valve sclerosis of a 3-cuspid aortic valve. Moderate aortic regurgitation. No aortic stenosis. 3. Mild dilatation of both the aortic root at the level of the sinus of Priti eula (4.0 cm) and the proximal ascending aorta (4.2 cm). 4. Suggestive of mild elevation of pulmonary artery systolic pressure and estimated right ventricle systolic pressure to be near the upper limits of normal to mildly elevated. Suggestive of normal CVP. 5. No pericardial effusion. ASSESSMENT : 69-year-old male with history of laryngeal cancer s/p radiation, prostate cancer, status post radical prostatectomy, CLL, small lymphocytic lymphoma, hypertension, chronic hyponatremia, hypothyroidism, admitted due to complaints of shortness of breath, respiratory distress, syncopal episode at home with alcohol intoxication, admitted on with acute hypoxic respiratory failure, aspiration pneumonia with a new left-sided lung mass, post-obstructive pneumonia with alcohol intoxication as possible cause for syncopal episode. PLAN: Acute hypoxic respiratory failure secondary to new left lung mass with possible malignancy, postobstructive pneumonia, resolved sepsis -S/p IV meropenem, aggressive pulmonary toilet, chest physiotherapy, Acapella and incentive spirometry. -S/p IVIG for CLL, patient's respiratory status improved significantly -WBC much improved, afebrile. -Currently on RA, saturating well -Cough improved with mucinex -D/w pulmonary who will see as o/p to decide further workup (Dr. Rivera). appointment made with pulmonary services prior to discharge. -C/w PO doxy, clinda as patient was unable to provide sputum cx prior to discharge. Syncope 2/2 symptomatic anemia from the lung mass/ ? malignancy vs. alcohol intoxication -No other recorded episodes -Echo: above -Tele no acute issues -Tx of anemia below, no transfusions required, no s/s of bleeding Symptomatic anemia -H/H stable, back to his baseline mentation. -F/u with PCP History of CLL, small lymphocytic lymphoma, prostate CA, status post radical prostatectomy, laryngeal CA, status post radiation. -S/p IVIG due to acute infection with significant improvement in his clinical status -Seen, evaluated by Dr. Beltre this admission -To f/u as o/p -Chronically elevated WBC, much improved Hyponatremia possibly 2/2 to malignancy -On sodium tabs -Will d/c with sodium tabs and f/u with PCP Hypertension. -BP stable Hypothyroidism -Synthroid. DISPOSITION: D/c home today with f/u with PCP, pulmonary appointment made prior to d/c . TIME SPENT ON DISCHARGE: 35 minutes. Vital Signs/I&Os Vital Signs Date Time Temp Pulse Resp B/P (MAP) Pulse Ox O2 Delivery O2 Flow Rate FiO2 09/06/20 12:00 97.8 63 18 162/82 (108) 95 Room Air 09/05/20 12:00 1.0 09/02/20 16:00 60 I&O- Last 24 Hours up to 6 AM 09/06/20 06:00 Intake Total 2225 ml Output Total 1275 ml Balance 950 ml Laboratory Data Labs 24H Laboratory Tests 2 09/06/20 05:14: Nucleated Red Blood Cells % (auto) 0.0, Anion Gap 6L, Glomerular Filtration Rate > 60.0, Calcium Level 9.4 CBC/BMP Laboratory Tests 09/06/20 05:14 Microbiology Microbiology 08/31/20 Respiratory Virus Panel (PCR) ([facility]) - Final, Complete 08/31/20 Blood Culture - Final, Complete NO GROWTH AFTER 5 DAYS 08/31/20 Blood Culture - Final, Complete NO GROWTH AFTER 5 DAYS Discharge Medications Scheduled Amlodipine Besylate (Amlodipine Besylate) 10 Mg Tablet, 10 MG PO DAILY Bisoprolol Fumarate (Bisoprolol Fumarate) 10 Mg Tablet, 10 MG PO DAILY, (Reported) Clindamycin Hcl (Clindamycin HCl) 150 Mg Capsule, 300 MG PO TID Doxycycline Monohydrate (Doxycycline) 100 Mg Capsule, 100 MG PO BID Ezetimibe (Ezetimibe) 10 Mg Tablet, 10 MG PO DAILY, (Reported) Guaifenesin (Mucinex) 600 Mg Tab.er.12h, 1,200 MG PO BID L.acidoph/L.bulg/B.bif/S.therm (Nia-Bid Caplet) 1 Each Tablet, 1 EA PO WM Levothyroxine Sodium (Levothyroxine Sodium) 50 Mcg Tab, 50 MCG PO DAILY, (Reported) Lisinopril (Lisinopril) 10 Mg Tablet, 1 TAB PO DAILY Multivitamins (Thera M Plus Tablet) 1 Each Tablet, 1 TAB PO DAILY, (Reported) Simvastatin (Simvastatin) 20 Mg Tablet, 20 MG PO QHS, (Reported) Allergies Coded Allergies: Penicillins (Verified Allergy, Severe, anaphylaxis, hives, 08/31/20) bee venom protein (honey bee) (Verified Allergy, Severe, respiratory depression, wheezing, 08/31/20) Flakita Holt MD September 06, 2020 21:00
[2020-09-06] MEDS ORDERED: SODI1TAB12 PO (21:19)
== END 2020-09-06 17:18 | disposition home or self-care (01) | DRG 871 ==
LOC: M ED 15:31 → EDBD 15:31 → M ED INP 23:24 → ENRESERV 23:43 → M PCU 09-01 00:56
PROVIDERS: ADMIT Family Medicine; ATTEND Internal Medicine
DX: A41.9 Sepsis, unspecified organism (principal); J18.9 Pneumonia, unspecified organism; J96.01 Acute respiratory failure with hypoxia; G93.41 Metabolic encephalopathy; E87.1 Hypo-osmolality and hyponatremia; C91.10 Chronic lymphocytic leukemia of B-cell type not having achieved remission; J98.11 Atelectasis; R55 Syncope and collapse; I10 Essential (primary) hypertension; E03.9 Hypothyroidism, unspecified; D64.9 Anemia, unspecified; F10.129 Alcohol abuse with intoxication, unspecified; F17.200 Nicotine dependence, unspecified, uncomplicated; F32.9 Major depressive disorder, single episode, unspecified; Z96.643 Presence of artificial hip joint, bilateral; Z85.46 Personal history of malignant neoplasm of prostate; Z85.21 Personal history of malignant neoplasm of larynx; R91.8 Other nonspecific abnormal finding of lung field; Z79.899 Other long term (current) drug therapy; Z88.0 Allergy status to penicillin; Z91.030 Bee allergy status; Z92.3 Personal history of irradiation; Z63.0 Problems in relationship with spouse or partner

== ENCOUNTER → 2020-10-04 | Outpatient (CLI) | payer MEDICARE, MEDICAID ==
[~2020-10-04] MED LIST changes: +AMLO1TAB25 PO; +CLIN150C15 PO; +DOXY-350 PO; +LISI10TA22 PO; +MUCI600T31 PO; +RISATAB3 PO; +SIMV20TA22 PO; +SODI1TAB12 PO; +VITMTA PO
--- NOTE | 2020-10-04 13:50 | PFTRPT ---
Site: [facility], [address] [place], [address] ID: [id number] Name: ANA MARIA ESCOTO Visit Date: 10/04/2020 Second ID: [id number] Referring Doctor: Ramos Rivera MD Reviewing Doctor: Ramos Rivera MD [employer] Operator: Felicitas CÁRDENAS, GEO Age: 70 : 1950 Sex: Male Race: Height: 65.00 Inches Weight: 145.00 Lbs BSA: 1.73 Order IDs: [id number] Requested Test(s): <RESP-PFT.PFT B/A> Diagnosis: R91.8 test appear to be valid, although the ATS standard for "end of test" was not met. Pt was given four puffs of albuterol for post bronchodilator Review Status: Not Reviewed Pre-Bronch Post-Bronch Pred Actual %Pred Actual %Chng SPIROMETRY FVC (L) 3.65 4.16 113 4.18 FEV1 (L) 2.68 2.89 107 3.07 6 FEV1/FVC (%) 74 70 93 73 5 FEF 25% (L/sec) 6.22 4.27 68 5.33 24 FEF 50% (L/sec) 3.94 2.79 70 3.20 14 FEF 75% (L/sec) 1.01 0.75 74 0.76 1 FEF 25-75% (L/sec) 2.07 1.99 96 2.34 17 FEF Max (L/sec) 7.36 5.75 78 6.72 16 FIVC (L) 4.09 4.26 3 FIF 50% (L/sec) 4.48 1.88 42 3.09 64 FIF Max (L/sec) 2.56 3.22 25 MVV (L/min) 112 92 82 Expiratory Time (sec) 7.30 7.41 1 Back Extrap Vol (L) 0.08 0.08 1 Time To FEFmax (sec) 0.069 0.070 1 LUNG VOLUMES SVC (L) 3.85 4.27 110 IC (L) 2.89 2.35 81 ERV (L) 0.96 1.92 200 TGV (L) 3.12 6.63 212 RV (Pleth) (L) 2.16 4.71 217 TLC (Pleth) (L) 6.01 8.98 149 RV/TLC (Pleth) (%) 35 52 149 DIFFUSION DLCOunc (ml/min/mmHg) 24.27 22.26 91 DLCOcor (ml/min/mmHg) 24.27 21.90 90 DL/VA (ml/min/mmHg/L) 4.04 3.27 80 VA (L) 6.01 6.69 111 BHT (sec) 10.77 IVC (L) 4.14 TLC (SB) (L) 6.84 AIRWAYS RESISTANCE Raw (cmH2O/L/s) 1.45 0.95 65 Gaw (L/s/cmH2O) 1.03 1.10 106 sRaw (cmH2O*s) 4.76 5.02 105 sGaw (1/cmH2O*s) 0.20 0.21 103 BLOOD GASES Hgb (gm/dL) 15.2
== END ==
LOC: M CARPUL 13:12
PROVIDERS: ATTEND Internal Medicine Pulmonary Disease
DX: R91.8 Other nonspecific abnormal finding of lung field (principal)

== ENCOUNTER → 2020-10-07 | Outpatient (CLI) | payer MEDICARE, MEDICAID ==
--- NOTE | 2020-10-07 14:01 | REP ---
INDICATION: ABN FINDINGS OF LUNG FIELD COMPARISON: Multiple examinations dated through 06/11/2019 TECHNIQUE: Axial noncontrast images from the thoracic inlet to the upper abdomen with coronal and sagittal reformations. This CT examination was performed using the following dose reduction techniques: Automated exposure control, adjustment of mA and/or kv according to the patient's size, and use of iterative reconstruction technique. FINDINGS: The current examination demonstrates subtle scattered small areas of alveolar infiltrate identified in the left upper and lower lobes which is an obvious improvement to the previously noted areas of consolidation and atelectasis. Minimal bilateral apical scarring along the medial aspect of the apices remains unchanged through 06/11/2019. Axillary, mediastinal and hilar adenopathy including calcified right hilar lymph nodes are again identified. There is no new area of significant consolidation and no pleural effusion or pneumothorax identified. The tracheobronchial tree is patent. The mediastinum demonstrates stable aneurysmal dilatation to the ascending thoracic aorta measuring 4.7 cm maximal diameter followed by descending thoracic aorta measuring 3.2 cm maximal diameter. Stable mild cardiomegaly noted without pericardial effusion. IMPRESSION: 1. Current examination demonstrates scattered small alveolar infiltrates in the left upper and left lower lobes and the previously noted areas of consolidation and atelectasis have resolved. Adenopathy remains stable. Continued follow-up to resolution may be warranted. 2. Stable aneurysmal dilatation to the thoracic aorta relatively unchanged compared through to 06/11/2019 <Electronically signed by Tony Lilly > 10/07/20 [id number]
== END ==
LOC: M RAD 12:50
PROVIDERS: ATTEND Internal Medicine Pulmonary Disease
DX: R91.8 Other nonspecific abnormal finding of lung field (principal); I51.7 Cardiomegaly; I71.2 Thoracic aortic aneurysm, without rupture

== ENCOUNTER → 2021-01-18 | Outpatient (CLI) | payer MEDICARE, MEDICAID ==
[~2021-01-18] MED LIST changes: -CLIN150C15 PO; +CLIN150C17 PO
--- NOTE | 2021-01-20 08:46 | REP ---
INDICATION: ABN FINDING OF LUNG COMPARISON: 10/07/2020, 08/31/2020 TECHNIQUE: Axial noncontrast images from the thoracic inlet to the upper abdomen with coronal and sagittal reformations. This CT examination was performed using the following dose reduction techniques: Automated exposure control, adjustment of mA and/or kv according to the patient's size, and use of iterative reconstruction technique. FINDINGS: The previously noted small scattered infiltrates primarily identified in the left upper and lower lobes have resolved. Underlying chronic changes including biapical scarring, mild bronchiectasis and minimal basilar scarring again noted. Specifically, subtle linear scarring in the basilar right middle lobe appears to be slightly increased from prior examination with suspected elements of mucous plugging identified. No acute consolidation, new suspicious nodule, or mass lesion. No effusion. No pneumothorax. Mediastinal adenopathy appears relatively similar to prior examination including lymph nodes measuring up to approximately 18 mm while bilateral axillary adenopathy (left greater than right) has visibly increased. Further evaluation of the mediastinum demonstrates stable aneurysmal dilatation to the thoracic aorta and mild atherosclerotic changes. No cardiomegaly or pericardial effusion. Surrounding osseous structures are essentially unchanged and without obvious acute process. IMPRESSION: 1. Chronic appearing emphysematous changes and scattered subtle scarring with subtle increased linear scarring to the right middle lobe and small focus area of associated mucous plugging. 2. Previously noted scattered small infiltrates primarily left-sided have resolved. 3. Bilateral axillary adenopathy (left greater than right) appears increased while mediastinal adenopathy appears stable. <Electronically signed by Tony Lilly > 01/20/21 0842
== END ==
LOC: M PLAIMG 09:11
PROVIDERS: ATTEND Internal Medicine Pulmonary Disease
DX: R91.8 Other nonspecific abnormal finding of lung field (principal); J43.9 Emphysema, unspecified; R59.0 Localized enlarged lymph nodes

== ENCOUNTER → 2022-01-04 | Outpatient (CLI) | payer MEDICARE, MEDICAID ==
[~2022-01-04] MED LIST changes: +ISOVUE-300 61% 50ML VIAL As Ordered ONE; +ISOVUE-370 76% 100ML VIAL As Ordered ONE; +SIMV-253 PO; +[UNRECOGNIZED DRUG - OTHER]
== END ==
LOC: M RAD 13:21
PROVIDERS: ATTEND Physician Assistant Medical
DX: R49.0 Dysphonia (principal)
CPT/HCPCS: 70491; Q9967

== ENCOUNTER → 2022-03-01 | Outpatient (CLI) | payer MEDICARE, MEDICAID ==
[~2022-03-01] MED LIST changes: -ISOVUE-300 61% 50ML VIAL As Ordered ONE
== END ==
LOC: M RAD 16:18
PROVIDERS: ATTEND Specialist
DX: C91.10 Chronic lymphocytic leukemia of B-cell type not having achieved remission (principal); K86.2 Cyst of pancreas; R59.0 Localized enlarged lymph nodes

== ENCOUNTER → 2022-03-14 | Outpatient (REF) | payer MEDICARE, MEDICAID ==
[~2022-03-14] MED LIST changes: -DOXY-350 PO; +DOXY-444 PO; -ISOVUE-370 76% 100ML VIAL As Ordered ONE
[2022-03-14 14:40] LABS: HEMATOCRIT 38.1 % (42.0-52.0); HEMOGLOBIN 12.2 g/dl (13.5-17.5); MEAN CORPUSCULAR HEMOGLOBIN 29.1 pg (27.0-33.0); MEAN CORPUSCULAR VOLUME 90.9 fl (80.0-96.0); PLATELET COUNT, AUTOMATED 212 10^3/uL (150-450); RED BLOOD COUNT 4.19 10^6/uL (4.30-6.10); WHITE BLOOD COUNT 15.7 10^3/uL (4.0-10.0)
[2022-03-14 15:35] LABS: ATYPICAL LYMPH 9 % (0-5); LYMPHOCYTES 67 % (16-44); MONOCYTES 1 % (0-5); NEUTROPHILS 22 % (28-66)
[2022-03-14 15:36] LABS: ANISOCYTOSIS 1+
[2022-03-14 15:37] LABS: PLATELET ESTIMATE NORMAL (NORMAL)
== END ==
LOC: M LAB REF 13:00
PROVIDERS: ATTEND Internal Medicine Pulmonary Disease
DX: R91.8 Other nonspecific abnormal finding of lung field (principal)